=== PATIENT | female | born 1960 | race Caucasian/White ===

== ENCOUNTER → 2017-12-16 08:35 | Outpatient (CLI) | payer OTHER, SELFPAY ==
--- NOTE | 2017-12-16 08:38 | BI_ITS ---
MAMMOGRAPHY - BILATERAL SCREENING REASON FOR EXAM: Female, 57 years old. Routine annual screening examination. PERTINENT HISTORY: Aunt with breast cancer. Prior left stereotactic breast biopsy. TECHNIQUE: Digital bilateral breast torres (3D mammographic acquisition) in the CC and MLO projections. 2-D mediolateral oblique (MLO) and craniocaudad (CC) views of both breasts were obtained. CAD: Full Field Digital Mammography with Computer Added Detection was performed. COMPARISON: Comparison is made with prior study dated December 07, 2016 and November 28, 2015. FINDINGS: Breast Composition: The breasts are heterogeneously dense, which may obscure small masses. There are no dominant masses or suspicious calcifications. Once again, a tissue clip marker is seen in the upper midportion of the left breast from prior stereotactic biopsy. Stable small benign-appearing bilateral axillary lymph nodes. No other significant abnormalities are identified. There has been no significant change since the prior study. BI/SCREENING MAMM (CAD), BILAT IMPRESSION: Stable bilateral screening mammogram. Yearly follow-up mammogram recommended. (A) ASSESSMENT CATEGORY: BIRADS Category 2: Benign. A letter regarding these results will be sent to the patient by the facility within 30 days. Approximately 10% of breast cancers are not detected by mammography. A normal mammogram should not delay biopsy of a clinically suspicious abnormality. [id number] Electronically Signed: Harvey Mohan MD at 10:54 EDT Tel [phone], Service support ,
== END ==
PROVIDERS: Family Provider Family Medicine; PCP Family Medicine; Visit Provider Obstetrics & Gynecology
DX: Z12.31 Encounter for screening mammogram for malignant neoplasm of breast (principal)
CPT/HCPCS: 77063; 77067

== ENCOUNTER → 2018-06-23 08:39 | Outpatient (CLI) | payer OTHER, SELFPAY ==
[2018-06-23 12:40] LABS: Vitamin D,25 Hydroxy 86.8 ng/mL (29.95-100.01)
[2018-06-23 13:01] LABS: ALB/GLOB Ratio 1.1 RATIO (0.9-2.4); AST(SGOT) 23 U/L (15-37); Alanine Aminotransfer ALT/SGPT 23 U/L (13-56); Albumin, Serum 3.6 g/dL (3.2-5.0); Alkaline Phosphatase 67 U/L (45-117); Anion Gap 8 (5-15); BUN 9 mg/dL (7-18); BUN/Creat Ratio 13.7 RATIO (10-20); Calcium,Total 8.7 mg/dL (8.5-10.1); Chloride 108 mmol/L (98-107); Cholesterol 177 mg/dL (200); Creatinine, Serum 0.66 mg/dL (0.55-1.02); EST Glomerular Filtration Rate 99 mL/min (>60); Est Glom Filt Rate - Afr Amer 119 mL/min (>60); Globulin 3.3 g/dL (2.2-4.2); Glucose 87 mg/dL (74-106); High Density Lipoprotein 66 mg/dL; Potassium 3.8 mmol/L (3.5-5.1); Protein, Total 6.9 g/dL (6.4-8.2); Sodium Level 142 mmol/L (136-145); Thyroid Stim Hormone (TSH) 2.17 uIU/mL (0.358-3.74); Triglycerides 58 mg/dL; Very Low Density Lipoprotein 12 mg/dL (5-40)
== END ==
PROVIDERS: Family Provider Family Medicine; PCP Family Medicine; Visit Provider Family Medicine
DX: M81.0 Age-related osteoporosis without current pathological fracture (principal); E55.9 Vitamin D deficiency, unspecified; Z13.220 Encounter for screening for lipoid disorders
CPT/HCPCS: 36415; 80053; 80061; 82306; 84439; 84443

== ENCOUNTER → 2018-12-29 10:29 | Outpatient (CLI) | payer OTHER, SELFPAY ==
--- NOTE | 2018-12-29 10:36 | BI_ITS ---
MAMMOGRAPHY - BILATERAL SCREENING 3-D TOMOSYNTHESIS REASON FOR EXAM: Female, 58 years old. Bilateral Screening 3-D tomosynthesis PERTINENT HISTORY: Aunt with breast cancer.. TECHNIQUE: 2-D mammograms and 3-D Tomosynthesis of the breast (s) were performed. CAD was performed. COMPARISON: 12/16/2017 FINDINGS: The breast composition is heterogeneously dense that can obscure small breast masses. Scattered benign calcifications are seen. No dense spiculated masses or suspicious microcalcifications are identified. No architectural distortion is identified. There is no skin thickening or retraction. There has been no significant change since the prior study. BI/SCREENING MAMM (CAD), BILAT IMPRESSION: No mammographic signs of malignancy. Routine yearly mammograms recommended. ASSESSMENT CATEGORY: BIRADS Category 2: Benign. A letter regarding these results will be sent to the patient by the facility within 30 days. FOLLOW UP RECOMMENDATION: Yearly follow up mammogram recommended. (A) Approximately 10% of breast cancers are not detected by mammography. A normal mammogram should not delay biopsy of a clinically suspicious abnormality. Electronically Signed: Carlton Diggs MD at 13:12 EDT , Service support ,
== END ==
PROVIDERS: Family Provider Family Medicine; PCP Family Medicine; Referring Provider Obstetrics & Gynecology; Visit Provider Obstetrics & Gynecology
DX: Z12.31 Encounter for screening mammogram for malignant neoplasm of breast (principal)
CPT/HCPCS: 77063; 77067

== ENCOUNTER → 2019-06-14 09:36 | Outpatient (CLI) | payer OTHER, SELFPAY ==
[2019-06-01 10:49] VITALS: BMI 23.1
[2019-06-14 12:46] LABS: AST(SGOT) 18 U/L (15-37); Alanine Aminotransfer ALT/SGPT 23 U/L (13-56); Albumin, Serum 3.8 g/dL (3.2-5.0); Alkaline Phosphatase 75 U/L (45-117); Bilirubin, Direct 0.15 mg/dL (0.00-0.30); Cholesterol 179 mg/dL (200); Globulin 3.6 g/dL (2.2-4.2); High Density Lipoprotein 68 mg/dL; Protein, Total 7.4 g/dL (6.4-8.2); T4 Total, Thyroxin 7.9 ug/dL (4.8-13.9); Thyroid Stim Hormone (TSH) 3.01 uIU/mL (0.358-3.74); Triglycerides 78 mg/dL; Very Low Density Lipoprotein 16 mg/dL (5-40)
== END ==
PROVIDERS: Family Provider Family Medicine; PCP Family Medicine; Referring Provider Internal Medicine Cardiovascular Disease; Visit Provider Internal Medicine Cardiovascular Disease
DX: E78.00 Pure hypercholesterolemia, unspecified (principal); R00.2 Palpitations
CPT/HCPCS: 36415; 80061; 80076; 84436; 84443

== ENCOUNTER → 2019-06-20 09:57 | Outpatient (CLI) | payer OTHER, SELFPAY ==
[2019-06-01 10:49] VITALS: BMI 23.1
--- NOTE | 2019-06-20 09:59 | ECHOD_ITS ---
Reason For Study: Palpitations Procedure This was a 2D Doppler, Color Flow transthoracic echocardiogram. Exam performed in department. Left Ventricle Normal size and thickness. The estimated ejection fraction is 65 %. Normal diastology for age. No regional wall motion abnormalities noted. Right Ventricle Normal size and thickness. Normal systolic function. Atria Normal left atrium. Normal right atrium. Normal atrial septum. Bubble contrast study negative for right to left interatrial shunt. Mitral Valve The mitral valve is structurally normal. No prolapse or stenosis seen. Mild (1+) eccentric mitral valve insufficiency. Tricuspid Valve Normal tricuspid valve. Trivial tricuspid valve insufficiency. Right ventricular systolic pressure estimated to be 22 mmHg. Aortic Valve Normal aortic valve. Trisinus/trileaflet aortic valve. Pulmonic Valve Normal pulmonic valve. Great Vessels Normal aortic root. Normal arch. Normal inferior vena cava. Inferior vena cava collapse with sniff. Pericardium/Pleural No pericardial effusion. MMode/2D Measurements & Calculations LVIDd: 3.4 cm IVSd: 0.92 cm LA dimension: 3.5 cm LVIDs: 2.1 cm LVPWd: 1.2 cm RVDd: 3.9 cm FS: 36.5 % LAV(MOD-bp): 50.9 ml LA A4 area: 16.5 cm2 RA A4 area: 13.8 cm2 LAV(MOD-bp) Indexed: 27.9 ml/m2 LAV(MOD-sp2): 40.6 ml LAV(MOD-sp4): 49.1 ml Time Measurements MV dec time: 0.21 sec Doppler Measurements & Calculations MV E max aaron: 76.0 cm/sec Lat Peak E' Aaron: 9.3 cm/sec Med Peak E' Aaron: 5.1 cm/sec MV A max aaron: 60.4 cm/sec E/E' lat: 8.2 E/E' med: 14.9 MV E/A: 1.3 MV V2 max: 102.1 cm/sec MV P1/2t max aaron: 103.0 cm/sec Ao V2 max: 91.9 cm/sec MV max P.2 mmHg MV P1/2t: 114.0 msec Ao max P.4 mmHg MV V2 mean: 55.3 cm/sec MV dec slope: 264.9 cm/sec2 Ao V2 mean: 68.8 cm/sec MV mean P.4 mmHg MVA(P1/2t): 1.9 cm2 Ao mean P.0 mmHg MV V2 VTI: 35.3 cm Ao V2 VTI: 20.6 cm LV V1 max: 83.0 cm/sec MR max aaron: 555.2 cm/sec PA V2 max: 75.1 cm/sec LV V1 max P.8 mmHg MR max P.3 mmHg LV V1 mean P.5 mmHg MR mean aaron: 400.2 cm/sec LV V1 mean: 56.3 cm/sec MR mean P.2 mmHg LV V1 VTI: 18.4 cm MR VTI: 148.7 cm TR max aaron: 208.1 cm/sec TR max P.3 mmHg Interpretation Summary The estimated ejection fraction is 65 %. Normal diastology for age. Bubble contrast study negative for right to left interatrial shunt. Mild (1+) eccentric mitral valve insufficiency. Trivial tricuspid valve insufficiency. Right ventricular systolic pressure estimated to be 22 mmHg. There is no comparison study available. Ordering Physician: Enzo Marquez Referring Physician: Torsten Rubio Performed By: Rory Zelaya RCS
== END ==
PROVIDERS: Family Provider Family Medicine; PCP Family Medicine; Referring Provider Internal Medicine Cardiovascular Disease; Visit Provider Internal Medicine Cardiovascular Disease
DX: R00.2 Palpitations (principal)
CPT/HCPCS: 93306; A4216

== ENCOUNTER → 2019-07-09 09:38 | Outpatient (CLI) | payer OTHER, SELFPAY ==
[2019-06-01 10:49] VITALS: BMI 23.1
[2019-07-06 09:43] VITALS: BMI 23.1
--- NOTE | 2019-07-09 09:39 | STE_ITS ---
Reason For Study: PALPITATIONS Stress Results Protocol: Adebayo Protocol Maximum Predicted HR: 162 bpm Target HR: 138 bpm % Maximum Predicted HR: 97 % DurationHeart Rate Stage (mm:ss) (bpm) BP Comment BASELINE 68 112/70 STAGE 1 3:00 100 140/82 STAGE 2 3:00 126 142/80 STAGE 3 3:00 142 162/80SL. SOB STAGE 4 1:17 157 / SL SOB RECOVERY 81 132/74 Stress Duration: 10:17 mm:ss Maximum Stress HR: 157 bpm Baseline Echocardiogram Findings The estimated ejection fraction is 65 %. Stress Echo Wall motion Data Resting WM Intermediate WM Stress WM Resting Wall Motion Wall Motion Stress No regional wall motion No regional wall motion abnormalities noted. abnormalities noted. EKG Data The baseline ECG displays normal sinus rhythm. The patient exercised according to the regular Adebayo protocol for a total duration of 10:17. The maximum heart rate attained was 160 beats per minute. This was 98% of maximum predicted heart rate. The patient exercised into stage 4 of the Adebayo protocol. During stress, there were no ST or T wave changes noted to suggest ischemia. No clinical angina was noted. No arrhythmias noted. Interpretation Summary The estimated ejection fraction is 65 %. Normal, adequate, treadmill echocardiogram. Negative for ischemia based on EKG and echocardiographic criteria. No anginal symptoms noted. No arrhythmias noted. Appropriate blood pressure response to exercise. Average exercise capacity for age. Test terminated due to dyspnea. Final LVEF is 75%. Patient tolerated procedure well. No complications. Ordering Physician: Enzo Marquez MD Referring Physician: Enzo Marquez Performed By: Kim Luciano RDCS
== END ==
PROVIDERS: Family Provider Family Medicine; PCP Family Medicine; Referring Provider Internal Medicine Cardiovascular Disease; Visit Provider Internal Medicine Cardiovascular Disease
DX: R00.2 Palpitations (principal); R06.00 Dyspnea, unspecified
CPT/HCPCS: 93017; 93350

== ENCOUNTER → 2019-07-12 20:14 | Outpatient (CLI) | payer OTHER, SELFPAY ==
[2019-06-01 10:49] VITALS: BMI 23.1
[2019-07-06 09:43] VITALS: BMI 23.1
== END ==
PROVIDERS: Family Provider Family Medicine; PCP Family Medicine; Referring Provider Internal Medicine Cardiovascular Disease; Visit Provider Internal Medicine Cardiovascular Disease
DX: G47.10 Hypersomnia, unspecified (principal)
CPT/HCPCS: 95810

== ENCOUNTER → 2019-07-19 10:10 | Outpatient (CLI) | payer OTHER, SELFPAY ==
[2019-07-19 10:07] VITALS: BMI 23.1
--- NOTE | 2019-07-19 10:12 | RAD_ITS ---
STUDY: X-RAY - RIGHT HAND REASON FOR EXAM: Pain at base of thumb, repetitive work. TECHNIQUE: 3 view(s) of the hand. COMPARISON: None. FINDINGS: There is osteopenia. Normal radiocarpal articulation. Normal distal radioulnar joint. Normal visualized carpal bones. Normal carpal articulations Normal carpometacarpal articulation of the thumb. Normal second through fifth carpometacarpal joints. Normal metacarpi. Normal metacarpophalangeal joint of the thumb. Normal interphalangeal joint of the thumb. Normal proximal and distal phalanges of the thumb. Normal metacarpophalangeal joints of the second through fifth fingers. There is joint space narrowing of the distal interphalangeal joints of the second through fifth fingers. Normal phalanges of the second through fifth fingers. The soft tissue structures are unremarkable. RAD/Hand Min 3 Views IMPRESSION: Arthrosis of the distal interphalangeal joints. Electronically Signed: Kalen Tavera MD at 11:04 EST Tel , Service support ,
== END ==
PROVIDERS: Family Provider Family Medicine; PCP Family Medicine; Referring Provider Orthopaedic Surgery; Visit Provider Orthopaedic Surgery
DX: M79.644 Pain in right finger(s) (principal)
CPT/HCPCS: 73130

== ENCOUNTER 2019-08-16 09:00 | Outpatient (RCR) | payer OTHER, SELFPAY ==
[2019-07-19 10:07] VITALS: BMI 23.1
--- NOTE | 2019-07-24 11:09 | HP.OTEVAL_ITS ---
Patient's Visit Information ARY MOELLER is a 58 year old F, referred to Occupational Therapy by Vicky Campbell DO, with a diagnosis of CMC pain; 2st metacarpal pain. Date of Evaluation: 07/24/19 Occupational Therapist: Felipa Schwartz, OTR/L - Subjective Subjective: Arrived and noted she has had increased thumb pain for a few years. She noted it gets aggravated in the fall. She noted she not working anywhere but completes yardwork regularly and having increased pain that is not subsiding. She noted just picking up a log hurts R thumb. Thumb pain appears to be in metacarpal joint. - Pain right thumb 0 Pain Intensity Range: 5 - Objective Objective/Observation: Good MP joint integrity; hyperextention of IP joint of B thumbs. Tenderness with palpation of proximal metacarpal bone. - ROM Wrist: flexion R 0-84, L WFL; ext R 0-66, WLF CMC: opposition R 0-30, L 0-34 MP: R 0-56, L 0-66 IP: R 0-60, L 0-56 Radial Abduction: R 0-45, L 0-46 MP: WFL PIP: WFL DIP: WFL - Strength Inspection Clerk: R 64, L 59 Lateral Pinch: R 8, L 10 Tripod Pinch: R 10, L 12 Tip-to-Tip Pinch: R 4, L 4 Strength Comments: Pain post resistive movements. - Sensation Sensation Comments: denies numbness or tingling. - Quick DASH-Disab of Arm,Shoulder& Hand Quick DASH Score: 6.8175 - Rehabilitation General Assessment: Ary completed OT evaluation on this date of 07/24/19. She has had ongoing thumb pain on and off for the last few years. She noted with rest pain resolves but after yardwork and other work around home it has continued this year. Structurally the x-ray did not indicate arthritis at CMC but general arthrosis of DIP of all fingers. Additionally, increased pain is palpated at proximal metacarpal area. Skilled OT warranted to promote increased strength, stability, body technician/painter training, and general ability to return to PLOF by d/c. Rehabilitation Potential: Good - Anticipated Interventions Anticipated Interventions: A/AAROM/PROM, Strengthening, Modalities, Orthoses, Joint Protection/Energy Conservation, Ergonomic Education, Fine Motor Coord/Lenard, ADL Training, Education re assistive Equipment, Caregiver Training, Home Program - Visit Plan Frequency: 2x /Week Duration: 4 Weeks General Plan: POC to be established to promote increased thumb stability and strength, pain management with use of modalities, ergonomic and body technician/painter training to promote increased ability to return to PLOF by d/c. TEXT: Thank you for the opportunity to evaluate your patient. For Medicare and Medicare HMO plans, please review the plan of care and approve it. It will need to be FAXED BACK to us at [phone] for Medicare purposes. Please let me know if there are questions or concerns regarding this plan of care. Physician S ignature: Date:
--- NOTE | 2019-10-02 07:51 | HP.OT.NRP ---
HP - Discharge Summary - Patient Information EVI MOELLER was seen in my office for initial evaluation on 07/24/19. The following Plan of Care was established for this patient: Initial Frequency: 2x /Week Initial Duration: 4 Weeks Plan: continue POC. Looking into ionto to see if covered. Evi to fill out med form to have on hand if needed and return next session. Continue stability exercises; monitor thumb pain and may try more bracing methods. - Anticipated Interventions Anticipated Interventions: A/AAROM/PROM, Strengthening, Modalities, Orthoses, Joint Protection/Energy Conservation, Ergonomic Education, Fine Motor Coord/Lenard, ADL Training, Education re assistive Equipment, Caregiver Training, Home Program This patient was last seen in our office 08/16/19. Pertinent comments regarding their Occupational therapy will appear below: Evi has not completed further follow up. OT called and discussed further home based treatment in conjunction to exercises set up in therapy.Ot had made low profile splint to manage pain with daily tasks but she is to further ook into PUSH brace as she is very activity and that is a brace that would support CMC without limiting her hand. She is to call with questions/ concerns. Her chart will be d/c'd at this time. At this point I will be discontinuing this patient from occupational therapy. I would be happy to see this patient again in the future if found appropriate by the physician. Thank you! Felipa Schwartz, OTR/L
== END 2019-08-16 19:00 | disposition home or self-care (01) ==
LOC: OT 09:00
PROVIDERS: Family Provider Family Medicine; PCP Family Medicine; Referring Provider Orthopaedic Surgery; Visit Provider Orthopaedic Surgery
DX: M25.541 Pain in joints of right hand (principal)
CPT/HCPCS: 97035; 97110; 97166; 97530; 97760

== ENCOUNTER → 2019-09-04 10:16 | Outpatient (CLI) | payer OTHER, SELFPAY ==
[2019-08-21 08:26] VITALS: BMI 23.1
--- NOTE | 2019-09-04 10:19 | MRI_ITS ---
STUDY: MRI RIGHT HAND REASON FOR EXAM: Female, 59 years old. Right thumb pain. First metacarpal pain. Repetitive use injury. TECHNIQUE: Standardized fat and water weighted pulse sequences were obtained in all 3 orthogonal planes. COMPARISON: X-ray dated 07/19/2019. FINDINGS: FIRST DIGIT: Moderate first carpometacarpal joint arthrosis. Small-volume first carpometacarpal joint effusion. Normal first metacarpal phalangeal joint. Normal first interphalangeal joint. Normal flexor and extensor tendons. No acute soft tissue abnormality. SECOND DIGIT: Normal visualized second metacarpus. Normal metacarpophalangeal joint. Normal proximal and distal interphalangeal joints. Normal proximal, middle and distal phalanges. Normal flexor and extensor tendons. There is no soft tissue abnormality. THIRD DIGIT: Normal visualized third metacarpus. Normal metacarpophalangeal joint. Normal proximal and distal interphalangeal joints. Normal proximal, middle and distal phalanges. Normal flexor and extensor tendons. There is no soft tissue abnormality. FOURTH DIGIT: Normal visualized fourth metacarpus. Normal metacarpophalangeal joint. Normal proximal and distal interphalangeal joints. Normal proximal, middle and distal phalanges. Normal flexor and extensor tendons. There is no soft tissue abnormality. FIFTH DIGIT: Normal visualized fifth metacarpus. Normal metacarpophalangeal joint. Normal proximal and distal interphalangeal joints. Normal proximal, middle and distal phalanges. Normal flexor and extensor tendons. There is no soft tissue abnormality. Small nonspecific cyst/erosions at the capitate and triquetrum. No acute fracture lines. No acute dislocation. No acute cortical destruction. No solid, cystic or lipomatous soft tissue lesions. No significant muscle atrophy. No significant soft tissue swelling. Normal visualized portions of the median nerve. Normal triangular fibrocartilage complex. Normal dorsal and volar extrinsic ligaments. Normal scapholunate ligament. MRI/Upper Ext/No Jt/ wo IMPRESSION: Moderate first CMC joint arthrosis with small joint effusion Small nonspecific carpal bone cysts/erosions Electronically Signed: Al Sloan DO at 12:40 EST Tel , Service support ,
== END ==
PROVIDERS: Family Provider Family Medicine; PCP Family Medicine; Referring Provider Orthopaedic Surgery; Visit Provider Orthopaedic Surgery
DX: S53.441A Ulnar collateral ligament sprain of right elbow, initial encounter (principal); M18.11 Unilateral primary osteoarthritis of first carpometacarpal joint, right hand
CPT/HCPCS: 73218

== ENCOUNTER 2019-10-25 05:55 | Day surgery (SDC) | payer BC, SELFPAY ==
[2019-09-12 09:13] VITALS: BMI 23.1
[2019-10-25] VITALS (8 sets, daily range): BP systolic 124–134; BP diastolic 73–92; PULSE 63–80; RESP 16–18; TEMP 36.4–36.9; O2SAT 98–100; BMI 22.4
--- NOTE | 2019-10-25 00:07 | HP.PCM_ITS ---
History and Physical Date of Admission: 10/25/19 HISTORY OF PRESENT ILLNESS 59 year old woman presents with a painful lesion left ear at the level of the antihelix at the base of the triangular fossa that has worsened over the last several months. The pain is worse in the morning then improves throughout the day. The area is erythematous. She denies fever. She denies trauma. She denies recent infection. She did have ear surgery several years ago but doesn't have specifics. She also has questions about the prominence of her ears and surgical options for treatment for that. PAST MEDICAL HISTORY Palpitations Atrial fibrillation Back problem Bone fracture Breast lump in female History of blood clots Skin cancer History of DVT (deep vein thrombosis) PAST SURGICAL HISTORY ear surgery back surgery ALLERGIES Sulfa (Sulfonamide Antibiotics) sulfamethoxazole [From Bactrim] trimethoprim [From Bactrim] bacitracin [From Neosporin ([id number]-vmu-[id number])] neomycin [From Neosporin (oue-gbs-ockoo)] polymyxin B [From Neosporin (keg-mrp-gggdu)] MEDICATIONS multivitamin omega-3 fatty acids ascorbic acid (vitamin C) vitamin B complex vitamin E (dl, acetate) antiarthritic combination calcium carbonate diltiazem rivaroxaban FAMILY HISTORY Mother - Atrial fibrillation, Arthritis, Colon cancer, Hypertension Aunt - Breast cancer Father - Skin cancer Sister - Skin cancer, MELANOMA Son - Hypertension Son - Hypertension SOCIAL HISTORY Smoking Status: Never smoker alcohol intake: current alcohol intake frequency: 0-2 drinks per day substance use type: does not use REVIEW OF SYSTEMS General - Denies fever, fatigue, and weight loss. Eyes - Denies cataracts and glaucoma. ENT - Denies nasal congestion and sore throat. Endocrine - Denies excessive thirst and urination. Skin - Has personal history of skin cancer. Has family history of skin cancer. Has painful erythematous lesion left ear at the level of the antihelix at the base of the triangular fossa. Musculoskeletal - Denies joint pain, joint stiffness, weakness of muscles and joints, and arthritis. Has back pain. Neuro - Denies headaches. Cardiovascular - Denies chest pain, fatigue, and shortness of breath with exertion. Psych - Denies anxiety and depression. Respiratory - Denies chronic cough and shortness of breath. Gastrointestinal - Denies nausea, vomiting, diarrhea, and constipation. Hematologic - Denies abnormal bruising and bleeding. Genitourinary - Denies hematuria and urinary frequency. PHYSICAL EXAMINATION General - Alert and Oriented. HEENT - PERRL. EOMI. Throat is clear. On the left ear on the antihelix at the base of the triangular fossa is a nodular cartilaginous lesion that measures 1 cm. It is erythematous. Some tenderness to palpation. Has some prominence to her ears. There is a mild ill-defined antihelical fold. There is no evidence of conchal excess and conchal scaphal angle is mildly greater than 90 degrees. The distance from the mastoid to the helix is 2.3 cm. Neck - Supple and nontender. No cervical adenopathy. Lungs - Clear to auscultation. Heart - Regular rate and rhythm. Abdomen - Soft and nondistended. Extremities - FROM. No axillary adenopathy. Radial pulses are palpable. Neuro - CN II-XII grossly intact. Psych - Normal mood and affect. ASSESSMENT 1. 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 2. Bilateral prominent ears. 3. Personal history of skin cancer. 4. Family history of skin cancer. PLAN Recommend excision of this erythematous cartilaginous lesion and send it to Pathology for analysis to rule out carcinoma. 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 After healing has occurred, can then discuss surgery for her prominent ears with an otoplasty. The otoplasty would not be covered by her insurance carrier, and she would be financially responsible. Surgery will be done on an outpatient basis under local anesthesia and IV sedation. Patient was informed of the risks and complications of the procedure including alternatives to surgery. These were discussed with the patient personally. Patient voices understanding and wishes to proceed. Some of the risks and complications were included in a form from the [employer].
[2019-10-25] MEDS: Lactated Ringers 1,000 ML 100 ML IV (06:50)
--- NOTE | 2019-10-25 07:30 | LES_PTH ---
PATIENT: EVI MOELLER [place] [facility] [place][id number] AGE/SX: 59/F ROOM: RE10/25/[address]: Dr. Alfonso Dickerson MD : 1960 BED: DIS: 10/25/2019 SPEC #: [id number] RECD: 10/25/19 10:23 STATUS: TIMMY REMehnaz #: [id number] NATALIA: 10/25/19 07:[address]: Alfonso Dickerson DEPT: SURGICAL PATHOLOGY RECD BY: Lenin Holloway ENTERED: 10/25/19 10:50 SP TYPE: Lesion OTHR DR: Dr. 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 A fragment of skin, no pathologic diagnosis. Negative for malignancy. GURVINDER:dania 10/26/19 MICROSCOPIC DESCRIPTION Slides are reviewed. GROSS DESCRIPTION Received in fixative is one container labeled with the patient's name and designated 1 cm painful erythematous lesion left ear on antihelix at base of triangular fossa. The specimen consists of multiple pieces of livingston-white skin and cartilaginous tissue that in aggregate measure 1 x 1.5 x 0.1 cm. The entire specimen is submitted in one cassette. / SJ:dania 10/25/19 TC:5 CPT: 93971
[2019-10-25] MEDS: Mupirocin Ointment 22gm Tube 1 APPLIC (07:58)
--- NOTE | 2019-10-25 08:19 | OP.PCM_ITS ---
Report of Operation Date of Procedure: 10/25/19 Pre-Operative Diagnosis: 1. 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 2. Bilateral prominent ears. 3. Personal history of skin cancer. 4. Family history of skin cancer. Post-Operative Diagnosis: Same. 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 Description of Surgical Findings:: 59 year old woman presents with a painful lesion left ear at the level of the antihelix at the base of the triangular fossa that has worsened over the last several months. The pain is worse in the morning then improves throughout the day. The area is erythematous. She denies fever. She denies trauma. She denies recent infection. She did have ear surgery several years ago but doesn't have specifics. Patient was informed of the risks and complications of the procedure including alternatives to surgery. These were discussed with the patient personally. Patient voices understanding and wishes to proceed. Some of the risks and complications were included in a form from the [employer]. accounts receivable analyst: None Type of Anesthesia:: Local MAC - xylocaine with epinephrine regional auricular block and IV sedation Specimen's removed: Cartilaginous lesion left ear to Pathology. Drains: None. Estimated Blood Loss (mL): 5 ml. Description of Procedure: Patient was taken to OR in supine position and was given IV sedation. The left ear was prepped and draped in the usual fashion. SCD's were placed for DVT prophylaxis. Perioperative antibiotics were given intravenously. The left ear was infiltrated with xylocaine and epinephrine regional auricular block. After waiting 5 minutes for the anesthetic to take effect, I made a curvilinear elliptical incision into the subcutaneous tissue. Some of the cartilaginous mass was adherent to the overlying skin with a small area of ulceration. The small ulceration was included in the curvilinear elliptical excision. The cartilaginous mass was excised back to smooth cartilage. It was feathered at the edges to minimize hard points in the cartilage during the healing process. The cartilaginous mass was sent to Pathology for analysis to rule out carcinoma. Hemostasis was obtained with electrocautery. The wound was closed with 5-0 Monocryl simple interrupted sutures. Antibiotic ointment was applied to the suture line. Patient tolerated the procedure well and was sent to PACU in satisfactory condition. Patient will be sent home on antibiotics and pain medication. She will keep her head elevated during the initial postoperative period. Patient will followup in a week for a wound check and for discussion of the pathology report. Grafts/Implants Used: None. - Complications None. - Admit VTE Documentation VTE Present on Admission: No VTE Mechan Device Prophylaxis: SCD's VTE Pharm Prophylaxis ordered?: No Code Visit Surgery Charges CPT - 60011 ICD-10 - H61.002, Z85.828, Z80.8
--- NOTE | 2019-10-25 08:34 | PCM.DC ---
You will use the following diet at home:: No restrictions Discharge Activity: May not drive while taking narcotic pain medications., May Shower - in two days., - - keep head elevated. no heavy lifting. May shower in (days): 2 May resume sexual activity in: No Restrictions Weight Bearing Status: Weight bearing as tolerated Lifting Restrictions: 20 lbs. Keep extremity elevated above heart level: - - elevate head. Call your doctor if your incision/area has: Continuous Slow Oozing, Sudden Increased Bleeding, Increased Pain/ Swelling, Increased Redness, Foul Smelling Discharge, Swelling at the incision site Call your doctor if you observe: Fever of 101 or Higher, Coldness, Increased Pain, Shortness of breath, Chest pain, Calf discomfort, Uncontrolled pain Suture Line Care: - - apply antibiotic ointment to suture line daily. Cleanse incision/area with: - - may get incision wet in the shower in two days. Additional Instructions: Patient may resume her Xarelto tomorrow 10/25/19. Allergies/Adverse Reactions: Allergies Sulfa (Sulfonamide Antibiotics) Allergy (Intermediate, Verified 10/25/19 06:32) Rash sulfamethoxazole [From Bactrim] Allergy (Intermediate, Verified 10/25/19 06:32) rash trimethoprim [From Bactrim] Allergy (Intermediate, Verified 10/25/19 06:32) rash bacitracin [From Neosporin ([id number])] Adverse Reaction (Intermediate, Verified 10/25/19 06:32) wound gets worse neomycin [From Neosporin ([id number])] Adverse Reaction (Intermediate, Verified 10/25/19 06:32) wound gets worse polymyxin B [From Neosporin ([id number]-[id number]-[id number])] Adverse Reaction (Intermediate, Verified 10/25/19 06:32) wound gets worse Medications to take at Discharge multivitamin 1 tab PO DAILY 05/30/19 ascorbic acid (vitamin C) 1,000 mg tablet 1 g PO DAILY tab 06/01/19 vitamin B complex 1 cap PO DAILY 06/01/19 vitamin E (dl, acetate) 400 unit capsule 400 unit PO DAILY 06/01/19 calcium carbonate 600 mg calcium (1,500 mg) tablet 600 mg PO DAILY 07/19/19 diltiazem HCl 120 mg capsule,extended release 24 hr 120 mg PO DAILY #30 cap 08/07/19 Clindamycin HCl [Cleocin] 300 mg PO TID #15 cap 10/25/19 Lactobacillus Acidophilus/Fos [Acidophilus Probiotic Tablet] 1 ea PO BID #10 tab 10/25/19 Oxycodone HCl/Acetaminophen [Percocet 5/325] 1 tablet PO Q6H PRN PRN 5 Days #20 tablet 10/25/19 Rivaroxaban [Xarelto] 20 mg PO DAILY #30 tab 10/25/19 The following prescriptions were given: Lactobacillus Acidophilus/Fos [Acidophilus Probiotic Tablet] 1 ea PO BID #10 tab Transmission Status: Pending to [facility] Clindamycin HCl [Cleocin] 300 mg PO TID #15 cap Transmission Status: Pending to [facility] Oxycodone HCl/Acetaminophen [Percocet 5/325] 1 tablet PO Q6H PRN PRN 5 Days #20 tablet PRN Reason: Pain Score 4-5/10 Transmission Status: Sent to [facility] Primary Care Physician: Torsten Rubio MD [Primary Care Provider] - Test Results: Test results from this visit will be discussed in further detail at your follow-up appointment, if applicable. Please Follow Up With: Alfonso Dickerson MD When: one week. call [phone] for appt. Proposed Discharge Date: 10/25/19
== END 2019-10-25 09:26 | disposition home or self-care (01) ==
LOC: SDC 05:57 → AC 05:58
PROVIDERS: PCP Family Medicine; Referring Provider Surgery; Visit Provider Surgery
PROC: (CPT 21013; principal; 2019-10-25 07:20)
DX: L98.9 Disorder of the skin and subcutaneous tissue, unspecified (principal); I48.91 Unspecified atrial fibrillation; Z86.718 Personal history of other venous thrombosis and embolism; Z85.828 Personal history of other malignant neoplasm of skin; Z79.899 Other long term (current) drug therapy; Z79.01 Long term (current) use of anticoagulants; H92.02 Otalgia, left ear
CPT/HCPCS: 00300; 21013; 88305; J7120; J2405

== ENCOUNTER → 2020-01-24 08:26 | Outpatient (CLI) | payer BC, SELFPAY ==
[2019-11-01 09:16] VITALS: BMI 22.4
--- NOTE | 2020-01-24 08:28 | BI_ITS ---
MAMMOGRAPHY - BILATERAL SCREENING REASON FOR EXAM: Female, 59 years old. Routine annual screening examination. PERTINENT HISTORY: Aunt with breast cancer. Remote left stereotactic breast biopsy. TECHNIQUE: Digital bilateral breast ayaz (3D mammographic acquisition) in the CC and MLO projections. 2-D mediolateral oblique (MLO) and craniocaudad (CC) views of both breasts were obtained. CAD: Full Field Digital Mammography with Computer Added Detection was performed. COMPARISON: Comparison is made with prior study dated December 29, 2018 and December 16, 2017. FINDINGS: Breast Composition: The breasts are heterogeneously dense, which may obscure small masses. There are no dominant masses or suspicious calcifications. A tissue clip marker is once again seen in the upper central portion of the left breast. No other significant abnormalities are identified. There has been no significant change since the prior study. BI/SCREEN MAMM (CAD) W/AYAZ BILAT IMPRESSION: Stable bilateral screening mammogram. Yearly follow-up mammogram recommended. (A) ASSESSMENT CATEGORY: BIRADS Category 2: Benign. A letter regarding these results will be sent to the patient by the facility within 30 days. Approximately 10% of breast cancers are not detected by mammography. A normal mammogram should not delay biopsy of a clinically suspicious abnormality. [id number] Electronically Signed: Harvey Mohan, at 10:18 EDT , Service support ,
== END ==
PROVIDERS: PCP Family Medicine; Referring Provider Obstetrics & Gynecology; Visit Provider Obstetrics & Gynecology
DX: Z12.31 Encounter for screening mammogram for malignant neoplasm of breast (principal)
CPT/HCPCS: 77063; 77067

== ENCOUNTER 2020-08-15 05:22 | Day surgery (SDC) | payer BC, SELFPAY ==
[2020-03-13 09:06] VITALS: BMI 23.0
[2020-08-15] VITALS (16 sets, daily range): BP systolic 106–164; BP diastolic 64–106; PULSE 66–77; RESP 16–18; TEMP 36.3–36.5; O2SAT 98–100; BMI 21.9
--- NOTE | 2020-08-15 05:46 | PCM.HP.BLA ---
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 Is patient in pain?: No Allergies Sulfa (Sulfonamide Antibiotics) Allergy (Intermediate, Verified 03/13/20 08:12) Rash sulfamethoxazole [From Bactrim] Allergy (Intermediate, Verified 03/13/20 08:12) rash trimethoprim [From Bactrim] Allergy (Intermediate, Verified 03/13/20 08:12) rash bacitracin [From Neosporin ([id number]-vio-nmamy)] Adverse Reaction (Intermediate, Verified 03/13/20 08:12) wound gets worse neomycin [From Neosporin (czd-fiy-tblsi)] Adverse Reaction (Intermediate, Verified 03/13/20 08:12) wound gets worse polymyxin B [From Neosporin (fwy-xwu-clzio)] Adverse Reaction (Intermediate, Verified 03/13/20 08:12) wound gets worse Medications multivitamin 1 tab PO DAILY 05/30/19 [History Confirmed 03/13/20] vitamin B complex 1 cap PO DAILY 06/01/19 [History Confirmed 03/13/20] vitamin E (dl, acetate) 400 unit capsule 400 unit PO DAILY 06/01/19 [History Confirmed 03/13/20] diltiazem HCl 120 mg capsule,extended release 24 hr 120 mg PO DAILY #90 cap 11/27/19 [Rx Confirmed 03/13/20] rivaroxaban 20 mg tablet 20 mg PO DAILY #90 tab 01/03/20 [Rx Confirmed 03/13/20] ascorbate calcium (vitamin C) 500 mg tablet 500 mg PO DAILY 03/13/20 [History Confirmed 03/13/20] [facility] Medical History 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) Palpitations (Chronic) Allergies (Acute) Atrial fibrillation (Acute) Back problem (Acute) Bone fracture (Acute) Breast lump in female (Acute) History of blood clots (Acute) Skin cancer (Acute) History of DVT (deep vein thrombosis) (Resolved ~2011) Surgical History History of ear surgery (Acute) History of back surgery (Chronic ~2012) History of excision of lesion (Chronic) Family History Mother Atrial fibrillation Arthritis Colon cancer Hypertension Severe allergy Aunt Breast cancer Father Skin cancer Sister Skin cancer MELANOMA Son Hypertension Son Hypertension Social History (Updated 03/13/20 @ 08:[address] Deandre Roque MD) Smoking Status: Never smoker alcohol intake: current alcohol intake frequency: 0-2 drinks per day substance use type: does not use caffeine: Yes Type: coffee Number of servings: 1 additional social history: DOES NOT USE ASPIRIN DOES USE IBUPROFEN NEEDED BUT NOT OFTEN HPI HPI HPI: EVI MOELLER, is a 59 F who presents to the office today for surgical consultation regarding a colonoscopy. 59 years old. Enjoys good health. She does have atrial fibrillation and she has been placed on Xarelto since her last visit. She has a mother who had very unusual medullary carcinoma external to the cecum. She eventually from that because it was very difficult to detect. I have assisted her February 04, 2017 with a colonoscopy. She had a tortuous colon. There was a 9 mm tubular adenoma in the proximal transverse colon. No atypia. She otherwise enjoys good health. She has had no abdominal pain no bright red blood per rectum no melena no weight loss. HPI HPI HPI: EVI MOELLER, is a 59 F who presents to the office today for ROS General General: No weight change, appetite, fatigue, colon cancer, breast cancer or weakness HEENT HEENT: No difficulty swallowing, eye injury, eye surgery, swollen glands or hoarseness Endo Endocrine: No thyroid disease, diabetes mellitus, thyroid cancer, Hair loss, heat intolerance or cold intolerance Skin Skin: No rash or changing moles Breast Breast: No left breast lump, right breast lump, nipple discharge, breast pain, abnormal mammogram, abnormal US or breast enlargement Musc Musculoskeletal: Yes back problems; no arthritis, rheumatoid arthritis, gout or joint pain Cardio Cardiovascular: Yes atrial fibrillation; no murmur, pacemaker, heart disease, high blood pressure, heart attack, heart stent, palpitations, shortness of breat with exertion or chest pain Psych Psychiatric: No depression, anxiety or hearing voices Resp Respiratory: No shortness of breath, No sleep apnea, No cough, No COPD, No asthma, No emphysema, No wheezing Gastro Gastrointestinal: No abdominal pain, No nausea or vomiting, No diarrhea, No constipation, No blood in stool, No acid reflux, No hemorrhoids, No ulcers, No gallbladder problem, No black,tarry stools Ilia Hematologic: Yes blood thinners, No blood disorders, No bleeding, No anemia, Yes blood clots Neuro Neurologic: No system reviewed and no additional complaints, except as docu, No as per HPI, No abnormal walking, No abnormal hearing, No abnormal movements, No abnormal speech, No behavioral changes, No burning sensations, No confusion, No seizure-like activity, No unsteadiness, No dizziness, No localized weakness, No frequent falls, No headache(s), No lack of coordination, No loss of vision, No memory loss, No numbness, No other visual disturbances, No radiating pain, No restless legs, No sensory deficit, No fainting, No tingling, No tremor(s), No weakness, No other Exam Const General: cooperative, healthy appearing, comfortable Nutritional Appearance: average body habitus HENMT Head: normal to inspection Chest Breast Palpation: No nipple discharge Resp Effort & Inspection: normal respiratory effort Auscultation: clear to auscultation bilaterally Cardio Rate: regular rate Rhythm: regular rhythm Heart Sounds: no murmurs GI Palpation: soft, no hepatosplenomegaly Auscultation: normal bowel sounds Extrem General: no calf tenderness Assessment & Plan Problems 1. Personal history of colonic polyps Z86.010 2. Family history of malignant neoplasm of colon in mother Z80.0 3. Paroxysmal atrial fibrillation I48.0 4. Chronic anticoagulation Z79.01 Plan 59-year-old female. She is 3 years from her previous colonoscopy with cold snare polypectomy of a proximal transverse colon tubular adenoma. She is asymptomatic. Her mother had a very unusual medullary carcinoma that was external to the cecum. This required extensive time. Detected and the patient eventually said come to it. As far as I can tell there is no routine family history of adenocarcinoma of the colon. We discussed the presence of Covid-19 The patient is now on chronic anticoagulation for A. fib. She would have to hold her Xarelto for 48 hours preintervention. We discussed the technique, benefit, risk of alternatives. At this time with a solitary tubular adenoma we discussed potential delaying the colonoscopy for 2 years. I appreciate the ongoing opportunity of assisting with her surgical care. Cc: Dr. Torsten Roque M.D., F.A.C.S. Medications Discontinued: Lactobac acidoph-fructooligos 500 million cell-50 mg Discontinued Reason: Pt no longer taking 1 ea PO BID 10 tabs 0RF clindamycin HCl Discontinued Reason: Pt no longer taking 300 mg PO TID 15 caps 0RF Coding Level of Care Code Off vis,est,level 2 Diagnoses Personal history of colonic polyps Z86.010 Family history of malignant neoplasm of colon in mother Z80.0 Paroxysmal atrial fibrillation I48.0 ??Atrial fibrillation type: paroxysmal Chronic anticoagulation Z79.01 Since the patient's office visit she denies fever or chills or cough or shortness of breath or leg swelling or pain. She has not had any bright red blood per rectum or melena. Her physical exam remains unchanged with clear lungs and unremarkable abdomen. She reminds me that she gets nauseated with some IV medications. We will provide an antiemetic. We have again discussed the technique, benefit, risk, alternatives of a colonoscopy with possible biopsy or polypectomy is indicated. She has had an opportunity to ask and have questions answered. She presents essentially via an open accessed technique. We will proceed as noted. Deandre Roque M.D., F.A.C.S. Procedure Criteria Procedure Type: Elective COVID Risk Discussion: The surgeon/proceduralist and patient have discussed in detail the risk of exposure to and/or potential harm posed by the COVID-19 virus with having a surgery/procedure at this time versus the risk of delaying the surgery/procedure. It is not possible to know either the risk of delaying the surgery or procedure or chance of getting an infection with perfect accuracy, but a joint decision was made between the patient and the surgeon/proceduralist to proceed at this time with the scheduled surgery/procedure as indicated on the consent form.
[2020-08-15] MEDS: Lactated Ringers 1,000 ML 100 ML IV ×2 (06:06→07:08)
[2020-08-15] MEDS: Ondansetron 4 MG/2 ML Vial (06:26)
--- NOTE | 2020-08-15 06:30 | COLBX_PTH ---
PATIENT: EVI MOELLER LOC: EN U#:[id number] AGE/SX: 60/F ROOM: RE08/15/[address]: Dr. Deandre Roque MD : 1960 BED: DIS: 08/15/2020 SPEC #: [id number] RECD: 08/15/20 10:52 STATUS: TIMMY REMehnaz #: [id number] NATALIA: 08/15/20 06:[address]: Deandre Roque DEPT: SURGICAL PATHOLOGY RECD BY: Charo Guardado ENTERED: 08/15/20 13:02 SP TYPE: COLON BX OTHR DR: Dr. Torsten Rubio MD Tissues: Cecum, NOS Procedures: Surgery Specimen Level IV HEADER OPERATION: Colonoscopy (MOD) PRE-OP DIAGNOSIS: Colonic polyps TISSUE SUBMITTED: Cecum polyp (cold snare and biopsy) MICROSCOPIC DIAGNOSIS Cecal polyp, biopsy: Tubular adenoma. Abundant fecal debris. AM:dania 12/14/20 MICROSCOPIC DESCRIPTION Slides are reviewed. GROSS DESCRIPTION Received in fixative is one container labeled with the patient's name and designated cecum polyp. The specimen consists of multiple irregular fragments of [place] soft tissue mixed with fecal material that in aggregate measure 2.5 x 1.5 x 0.1 cm. The specimen is totally submitted in one cassette. / SJ:dania 08/15/20 TC:5 CPT: 89944
--- NOTE | 2020-08-15 06:58 | OP.COLON_ITS ---
Patient Name: Ary Patten Procedure Date: 08/15/2020 6:04 AM Date of : 1960 Age: 60 Procedure: Colonoscopy Indications: High risk colon cancer surveillance: Personal history of colonic polyps Providers: Deandre Roque MD Referring MD: Torsten Rubio Medicines: Midazolam 3.5 mg IV, Meperidine 100 mg IV, Ondansetron 4 mg IV Patient Profile: Last Colonoscopy: 3 years ago. Complications: No immediate complications. Procedure: Pre-Anesthesia Assessment: - Prior to the procedure, a History and Physical was performed, and patient medications and allergies were reviewed. The patient's tolerance of previous anesthesia was also reviewed. The risks and benefits of the procedure and the sedation options and risks were discussed with the patient. All questions were answered, and informed consent was obtained. Prior Anticoagulants: The patient has taken Xarelto (rivaroxaban), last dose was 2 days prior to procedure. ASA Grade Assessment: II - A patient with mild systemic disease. After reviewing the risks and benefits, the patient was deemed in satisfactory condition to undergo the procedure. After I obtained informed consent, the scope was passed under direct vision. Throughout the procedure, the patient's blood pressure, pulse, and oxygen saturations were monitored continuously. The adult colonoscope was introduced through the anus and advanced to the cecum, identified by appendiceal orifice and ileocecal valve. The colonoscopy was performed without difficulty. The patient tolerated the procedure well. The quality of the bowel preparation was good. The ileocecal valve and the appendiceal orifice were photographed. Moderate Sedation: Moderate (conscious) sedation was personally administered by the endoscopist. The following parameters were monitored: oxygen saturation, heart rate, blood pressure, and response to care. Total physician intraservice time was 15 minutes. Scope In: 6:30:27 AM Scope Withdrawal Time 0 hours 17 minutes 28 seconds Scope Out: 6:52:08 AM Total Procedure Duration Time 0 hours 21 minutes 41 seconds Findings: The perianal and digital rectal examinations were normal. A 8 mm polyp was found in the cecum. The polyp was sessile. The polyp was removed with a cold snare. Resection and retrieval were complete. To prevent bleeding post-intervention, one hemostatic clip was successfully placed. There was no bleeding at the end of the procedure. The colon (entire examined portion) was moderately tortuous. Advancing the scope required using manual pressure. The exam was otherwise without abnormality. Impression: - One 8 mm polyp in the cecum, removed with a cold snare. Resected and retrieved. Clip was placed. - Tortuous colon. - The examination was otherwise normal. Recommendation: - Discharge patient to home. - Resume previous diet. - Continue present medications. - Repeat colonoscopy in 5 years for surveillance based on pathology results. - Telephone my office for pathology results in 1 week. Procedure Code(s): --- Professional --- 45927, Colonoscopy, flexible; with removal of tumor(s), polyp(s), or other lesion(s) by snare technique 54352, 59, Moderate sedation services provided by the same physician or other qualified health health care specialist performing the diagnostic or therapeutic service that the sedation supports, requiring the presence of an independent trained observer to assist in the monitoring of the patient's level of consciousness and physiological status; initial 15 minutes of intraservice time, patient age 5 years or older Diagnosis Code(s): --- Professional --- Z86.010, Personal history of colonic polyps D12.0, Benign neoplasm of cecum Q43.8, Other specified congenital malformations of intestine CPT copyright 2017 [employer]. All rights reserved. The codes documented in this report are preliminary and upon nursing admin review may be revised to meet current compliance requirements. Deandre Roque MD 08/15/2020 6:57:53 AM This report has been signed electronically. Number of Addenda: 0 Note Initiated On: 08/15/2020 6:04 AM
--- NOTE | 2020-08-15 06:58 | OP.CCLET_ITS ---
08/15/2020 Torsten Rubio Re : Colonoscopy procedure for Ary Patten Dear Joanne This procedure was performed on Saturday, August 15, 2020. My impressions and recommendations are as follows: Impressions : - One 8 mm polyp in the cecum, removed with a cold snare. Resected and retrieved. Clip was placed. - Tortuous colon. - The examination was otherwise normal. Recommendations : - Discharge patient to home. - Resume previous diet. - Continue present medications. - Repeat colonoscopy in 5 years for surveillance based on pathology results. - Telephone my office for pathology results in 1 week. My findings are described in the full procedure note, which is enclosed. If I can be of further assistance, please feel free to contact me at Doctor phone number(s): Work: . Sincerely, Deandre Roque MD 08/15/2020 6:57:53 AM This report has been signed electronically.
== END 2020-08-15 08:45 | disposition home or self-care (01) ==
LOC: EN 05:26 → AC 05:28
PROVIDERS: PCP Family Medicine; Referring Provider Family Medicine; Visit Provider Surgery
PROC: 0DJD8ZZ Inspection of Lower Intestinal Tract, Via Natural or Artificial Opening Endoscopic (ICD-10-PCS; CPT 45378; principal; 2020-08-15 06:25)
DX: Z12.11 Encounter for screening for malignant neoplasm of colon (principal); Z20.828 Contact with and (suspected) exposure to other viral communicable diseases; Z87.19 Personal history of other diseases of the digestive system; D12.0 Benign neoplasm of cecum; Z80.0 Family history of malignant neoplasm of digestive organs; Z86.718 Personal history of other venous thrombosis and embolism; I48.0 Paroxysmal atrial fibrillation; Z79.01 Long term (current) use of anticoagulants; Z79.899 Other long term (current) drug therapy; Q43.8 Other specified congenital malformations of intestine
CPT/HCPCS: 45385; 87426; 88305; 99152; 99153; C9803; J7120; J2405

== ENCOUNTER → 2021-02-11 11:21 | Outpatient (CLI) | payer BC, SELFPAY ==
[2021-02-11 10:53] VITALS: BMI 23.5
[2021-02-11 12:04] LABS: Absolute Lymphocyte Count 1.98 X10^3/uL (0.83-4.51); Basophil# 0.05 X10^3/uL; Basophil% 0.7 % (0-1); Eosinophil# 0.11 X10^3/uL; Eosinophils% 1.6 % (0-5); Hematocrit 44.1 % (37-47); Hemoglobin 14.6 g/dL (12.0-15.0); Lymphocyte # 1.98 X10^3/ul (0.83-4.51); Lymphocyte % 29.6 % (19-41); Mean Corp Hgb Conc 33.1 g/dL (32-36); Mean Corpuscular Hgb 29.7 pg (27.0-32.0); Mean Corpuscular Volume 89.8 fL (81-99); Mean Platelet Vol. 9.4 fl (6.2-12.0); Monocyte# 0.54 X10^3/uL; Monocyte% 8.1 % (0-10); NRBC Flagged by Analyzer 0 % (0-5); Neutrophil # 3.97 X10^3/uL (2.7-7.7); Neutrophil % 59.6 % (47-70); Platelet Count 227 K/mm3 (150-450); RBC Distribution Width CV 12.5 % (11.6-14.6); RBC Distribution Width SD 41.1 fl (35.1-43.9); Red Blood Count 4.91 M/mm3 (4.2-5.4); White Blood Count 6.7 K/mm3 (4.4-11.0)
[2021-02-11 13:02] LABS: ALB/GLOB Ratio 1.1 RATIO (0.9-2.4); AST(SGOT) 20 U/L (15-37); Alanine Aminotransfer ALT/SGPT 25 U/L (13-56); Albumin, Serum 3.8 g/dL (3.2-5.0); Alkaline Phosphatase 90 U/L (45-117); Anion Gap 6 (5-15); BUN 14 mg/dL (7-18); BUN/Creat Ratio 23.1 RATIO (10-20); Calcium,Total 9.6 mg/dL (8.5-10.1); Chloride 107 mmol/L (98-107); Cholesterol 191 mg/dL (200); Creatinine, Serum 0.61 mg/dL (0.55-1.02); EST Glomerular Filtration Rate 107 mL/min (>60); Est Glom Filt Rate - Afr Amer 129 mL/min (>60); Globulin 3.6 g/dL (2.2-4.2); Glucose 94 mg/dL (74-106); High Density Lipoprotein 68 mg/dL; Potassium 4.3 mmol/L (3.5-5.1); Protein, Total 7.4 g/dL (6.4-8.2); Sodium Level 141 mmol/L (136-145); Triglycerides 101 mg/dL; Very Low Density Lipoprotein 20 mg/dL (5-40)
== END ==
PROVIDERS: PCP Internal Medicine; Referring Provider Internal Medicine; Visit Provider Internal Medicine
DX: I48.0 Paroxysmal atrial fibrillation (principal)
CPT/HCPCS: 36415; 80053; 80061; 85025

== ENCOUNTER → 2021-03-19 14:17 | Outpatient (CLI) | payer BC, SELFPAY ==
[2021-02-11 10:53] VITALS: BMI 23.5
--- NOTE | 2021-03-19 14:22 | BI_ITS ---
MAMMOGRAPHY - BILATERAL SCREENING REASON FOR EXAM: Female, 60 years old. Routine annual screening examination. PERTINENT HISTORY: Aunt with breast cancer. TECHNIQUE: Digital bilateral breast ayaz (3D mammographic acquisition) in the CC and MLO projections. 2-D mediolateral oblique (MLO) and craniocaudad (CC) views of both breasts were obtained. CAD: Full Field Digital Mammography with Computer Added Detection was performed. COMPARISON: Comparison is made with prior study dated 01/24/2020 and 12/29/2018. FINDINGS: Breast Composition: The breasts are heterogeneously dense, which may obscure small masses. There are no dominant masses or suspicious calcifications. A tissue clip marker is once again seen in the upper central portion of the left breast. Stable small benign appearing bilateral axillary lymph nodes. No other significant abnormalities are identified. There has been no significant change since the prior study. BI/SCRN MAMM (CAD)W/AYAZ BILAT IMPRESSION: Stable bilateral screening mammogram. Yearly follow-up mammogram recommended. (A) ASSESSMENT CATEGORY: BIRADS Category 2: Benign. A letter regarding these results will be sent to the patient by the facility within 30 days. Approximately 10% of breast cancers are not detected by mammography. A normal mammogram should not delay biopsy of a clinically suspicious abnormality. [id number] Electronically Signed: Harvey Mohan MD at 15:35 EDT , Service support ,
--- NOTE | 2021-03-19 14:31 | BD_ITS ---
STUDY: DUAL ENERGY X-RAY ABSORPTIOMETRY / DXA REASON FOR EXAM: Female, 60 years old. [id number]. Patient is postmenopausal. Loss of height. TECHNIQUE: Bone Mineral Density (BMD) measurements of lumbar spine and bilateral hips were obtained. COMPARISON: Comparison is made with prior examination dated 12/07/2016. FINDINGS: Lumbar Spine (L1-L4): g/cm2 (0.640) / T-score (-3.7) / Z-score (-2.3) Findings are suggestive of osteoporosis with a high fracture risk. Left Femur Total: g/cm2 (0.723) / T-score (-1.8) / Z-score (-0.8) Left Femoral Neck: g/cm2 (0.607) / T-score (-2.2) / Z-score (-0.9) Right Femur Total: g/cm2 (0.714) / T-score (-1.9) / Z-score (-0.9) Right Femoral Neck: g/cm2 (0.577) / T-score (-2.5) / Z-score (-1.1) The T-Scores on the most recent prior examination were: Lumbar Spine (L1-L4): There has been worsening of bone density since the previous examination. Left Femur Total: which represents an improvement of 8.5%. Right Femur Total: which represents an improvement of 9.6%. BD/Dexa Bone Density Study IMPRESSION: The patient is considered osteoporotic as outlined below according to World [place] Organization (WHO) criteria with a high fracture risk. There has been improvement of bone density since the previous examination. Reference Information: The T-score is the number of standard deviations above or below the standard which is normal for young adults at their peak bone mineral density. The World Health Organization (WHO) interprets the T-scores as follows: Above -1 Normal bone density Between -1 and -2.5 Osteopenia Equal to / or below -2.5 Osteoporosis As a practical clinical guideline, osteopenia may be graded as follows: Mild -1 through -1.5 Moderate -1.6 through -2.0 Severe -2.1 through -2.4 The Z-score is the number of standard deviations above or below age-matched controls. A Z-score of less than -1.5 would be considered abnormal. References: 1. NIH Osteoporosis and Related Bone Diseases www osteo.org 2. International Society for Clinical Densitometry www iscd.org 3. National Osteoporosis Foundation www nof.org Electronically Signed: Harvey Mohan MD at 12:31 EDT , Service support ,
== END ==
PROVIDERS: PCP Internal Medicine; Referring Provider Obstetrics & Gynecology; Visit Provider Obstetrics & Gynecology
DX: Z78.0 Asymptomatic menopausal state (principal); Z12.31 Encounter for screening mammogram for malignant neoplasm of breast
CPT/HCPCS: 77063; 77067; 77080

== ENCOUNTER → 2021-08-12 10:08 | Outpatient (CLI) | payer BC, SELFPAY ==
[2021-08-12 12:52] LABS: Vitamin D,25 Hydroxy 65.6 ng/mL
[2021-08-12 12:58] LABS: ALB/GLOB Ratio 0.9 RATIO (0.9-2.4); AST(SGOT) 19 U/L (15-37); Alanine Aminotransfer ALT/SGPT 24 U/L (13-56); Albumin, Serum 3.6 g/dL (3.2-5.0); Alkaline Phosphatase 74 U/L (45-117); Anion Gap 6 (5-15); BUN 12 mg/dL (7-18); Calcium,Total 9.9 mg/dL (8.5-10.1); Chloride 106 mmol/L (98-107); Creatinine, Serum 0.67 mg/dL (0.55-1.02); EST Glomerular Filtration Rate 96 mL/min (>60); Est Glom Filt Rate - Afr Amer 116 mL/min (>60); Globulin 4.1 g/dL (2.2-4.2); Glucose 99 mg/dL (74-106); Magnesium 2.3 mg/dL (1.6-2.6); Potassium 4.5 mmol/L (3.5-5.1); Protein, Total 7.7 g/dL (6.4-8.2); Sodium Level 140 mmol/L (136-145)
== END ==
PROVIDERS: PCP Internal Medicine; Visit Provider Internal Medicine
DX: I48.0 Paroxysmal atrial fibrillation (principal); M81.0 Age-related osteoporosis without current pathological fracture
CPT/HCPCS: 36415; 80053; 82306; 83735

== ENCOUNTER 2021-09-16 12:11 | Outpatient (CLI) | payer BC, SELFPAY | END 2021-09-16 23:59 | disposition short-term general hospital (02) | LOC: LABSPEC 12:12 | PROVIDERS: PCP Internal Medicine; Referring Provider Nurse Practitioner Family; Visit Provider Nurse Practitioner Family | DX: J02.9 Acute pharyngitis, unspecified (principal) | CPT/HCPCS: 87070; 87077; 87186 ==

== ENCOUNTER → 2022-02-24 | Outpatient (CLI) | payer BC, SELFPAY ==
[2022-03-01 11:17] LABS: HPV APTIMA, High Risk Negative (Negative)
== END | disposition home or self-care (01) ==
LOC: LABSPEC 11:24
PROVIDERS: PCP Internal Medicine; Visit Provider Obstetrics & Gynecology
DX: Z12.4 Encounter for screening for malignant neoplasm of cervix (principal)
CPT/HCPCS: 87624; 88175; G0145

== ENCOUNTER → 2022-03-25 | Outpatient (CLI) | payer BC, SELFPAY ==
--- NOTE | 2022-03-25 08:44 | BI_ITS ---
MAMMOGRAPHY - BILATERAL SCREENING REASON FOR EXAM: Female, 61 years old. Routine annual screening examination. PERTINENT HISTORY: Aunt with breast cancer. Remote left stereotactic breast biopsy. TECHNIQUE: Digital bilateral breast ayaz (3D mammographic acquisition) in the CC and MLO projections. 2-D mediolateral oblique (MLO) and craniocaudad (CC) views of both breasts were obtained. CAD: Full Field Digital Mammography with Computer Added Detection was performed. COMPARISON: Comparison is made with prior study dated 03/19/2021 and 01/24/2020. FINDINGS: Breast Composition: The breasts are heterogeneously dense, which may obscure small masses. There are no dominant masses or suspicious calcifications. Stable small benign-appearing bilateral axillary nodes. A tissue clip marker is seen in the upper central portion of the left breast. No other significant abnormalities are identified. There has been no significant change since the prior study. BI/SCRN MAMM (CAD)W/AYAZ BILAT IMPRESSION: Stable bilateral screening mammogram. Yearly follow-up mammogram recommended. (A) ASSESSMENT CATEGORY: BIRADS Category 2: Benign. A letter regarding these results will be sent to the patient by the facility within 30 days. Approximately 10% of breast cancers are not detected by mammography. A normal mammogram should not delay biopsy of a clinically suspicious abnormality. [id number] Electronically Signed: Harvey Mohan MD at 9:40 EDT ,
== END | disposition home or self-care (01) ==
LOC: OPBI 08:43
PROVIDERS: PCP Internal Medicine; Visit Provider Obstetrics & Gynecology
DX: Z12.31 Encounter for screening mammogram for malignant neoplasm of breast (principal)
CPT/HCPCS: 77063; 77067

== ENCOUNTER → 2022-05-26 | Outpatient (CLI) | payer BC, SELFPAY ==
[2022-06-03 15:37] LABS: HPV APTIMA, High Risk Negative (Negative)
== END | disposition home or self-care (01) ==
LOC: LABSPEC 14:27
PROVIDERS: PCP Internal Medicine; Visit Provider Student in an Organized Health Care Education/Training Program
DX: Z12.4 Encounter for screening for malignant neoplasm of cervix (principal)
CPT/HCPCS: 87624; 88175; G0145

== ENCOUNTER → 2022-08-04 | Outpatient (CLI) | payer BC, SELFPAY ==
[2022-08-04 12:27] LABS: Absolute Lymphocyte Count 1.98 X10^3/uL (0.83-4.51); Absolute Neutrophil Count 3.8 X10^3/uL (2.0-7.7); Basophil# 0.05 X10^3/uL; Basophil% 0.8 % (0-1); Eosinophil# 0.17 X10^3/uL; Eosinophils% 2.6 % (0-5); Hematocrit 42.5 % (37-47); Hemoglobin 14.1 g/dL (12.0-15.0); Lymphocyte # 1.98 X10^3/ul (0.83-4.51); Lymphocyte % 30.5 % (19-41); Mean Corp Hgb Conc 33.2 g/dL (32-36); Mean Corpuscular Hgb 29.9 pg (27.0-32.0); Mean Corpuscular Volume 90.2 fL (81-99); Mean Platelet Vol. 9.4 fl (6.2-12.0); Monocyte% 7.7 % (0-10); NRBC Flagged by Analyzer 0 % (0-5); Neutrophil # 3.76 X10^3/uL (2.7-7.7); Neutrophil % 57.9 % (47-70); Platelet Count 226 K/mm3 (150-450); RBC Distribution Width CV 12.5 % (11.6-14.6); RBC Distribution Width SD 41.2 fl (35.1-43.9); Red Blood Count 4.71 M/mm3 (4.2-5.4); White Blood Count 6.5 K/mm3 (4.4-11.0)
[2022-08-04 13:02] LABS: ALB/GLOB Ratio 1.1 RATIO (0.9-2.4); AST(SGOT) 18 U/L (15-37); Alanine Aminotransfer ALT/SGPT 28 U/L (13-56); Albumin, Serum 3.5 g/dL (3.2-5.0); Alkaline Phosphatase 50 U/L (45-117); Anion Gap 4 (5-15); BUN 14 mg/dL (7-18); BUN/Creat Ratio 20.6 RATIO (10-20); Calcium,Total 8.6 mg/dL (8.5-10.1); Chloride 106 mmol/L (98-107); Creatinine, Serum 0.68 mg/dL (0.55-1.02); EST Glomerular Filtration Rate 93 mL/min (>60); Est Glom Filt Rate - Afr Amer 113 mL/min (>60); Globulin 3.3 g/dL (2.2-4.2); Glucose 88 mg/dL (74-106); Potassium 3.7 mmol/L (3.5-5.1); Protein, Total 6.8 g/dL (6.4-8.2); Sodium Level 140 mmol/L (136-145)
[2022-08-04 13:06] LABS: Vitamin D,25 Hydroxy 74.2 ng/mL
== END | disposition home or self-care (01) ==
LOC: BIMLAB 11:37
PROVIDERS: PCP Internal Medicine; Referring Provider Internal Medicine; Visit Provider Internal Medicine
DX: M81.0 Age-related osteoporosis without current pathological fracture (principal)
CPT/HCPCS: 36415; 80053; 82306; 85025

== ENCOUNTER → 2022-08-09 | Outpatient (CLI) | payer BC, SELFPAY ==
[2022-08-09 13:02] LABS: Vitamin B12 816 pg/mL (211-911)
[2022-08-09 13:07] LABS: T4 Free Direct 0.92 ng/dL (0.76-1.46); Thyroid Stim Hormone (TSH) 3.24 uIU/mL (0.358-3.74)
== END | disposition home or self-care (01) ==
LOC: BIMLAB 10:13
PROVIDERS: PCP Internal Medicine; Referring Provider Internal Medicine; Visit Provider Internal Medicine
DX: F32.A Depression, unspecified (principal)
CPT/HCPCS: 36415; 82607; 84439; 84443

== ENCOUNTER → 2022-08-10 | Outpatient (CLI) | payer BC, SELFPAY | END | disposition home or self-care (01) | LOC: LABSPEC 09:58 | PROVIDERS: PCP Internal Medicine; Visit Provider Dermatology | DX: L98.8 Other specified disorders of the skin and subcutaneous tissue (principal); J34.0 Abscess, furuncle and carbuncle of nose; B95.61 Methicillin susceptible Staphylococcus aureus infection as the cause of diseases classified elsewhere | CPT/HCPCS: 87070; 87077; 87186; 87205 ==

== ENCOUNTER 2022-09-06 10:32 | Observation (INO) | payer BC, SELFPAY ==
[2022-09-06] VITALS (22 sets, daily range): BP systolic 124–156; BP diastolic 73–89; PULSE 55–87; RESP 16–20; TEMP 36.2–36.8; O2SAT 94–99; BMI 22.1; BMI 23.3; BMI 21.2
--- NOTE | 2022-09-06 10:37 | ED.RN ---
DISCUSSED PT WITH DR HAMILTON. NO STROKE ALERT
--- NOTE | 2022-09-06 11:21 | RAD_ITS ---
HISTORY: Neuro deficit, acute, stroke suspected. TECHNIQUE: XR Chest 1 View. COMPARISON: None. FINDINGS: CARDIOMEDIASTINAL BORDERS: Cardiac silhouette within normal limits in size. Mediastinal contour unremarkable. LUNGS: Mild linear bibasilar opacities. PLEURA: No pleural effusion or pneumothorax seen. OSSEOUS STRUCTURES: Unremarkable. OTHER: Residual contrast in the left upper extremity veins. RAD/Chest 1 View IMPRESSION: Mild bibasilar atelectasis. Electronically Signed: Rhonda Redd MD at 12:10 EST ,
--- NOTE | 2022-09-06 11:21 | EKG12_ITS ---
Test Reason : NEURO S/SX Blood Pressure : / mmHG Vent. Rate : 051 BPM Atrial Rate : 051 BPM P-R Int : 192 ms QRS Dur : 082 ms QT Int : 438 ms P-R-T Axes : 050 046 048 degrees QTc Int : 403 ms Sinus bradycardia Otherwise normal ECG Confirmed by IRMA INGRAM, XOCHILT ([id number]), digital editor SONAL POPE ([id number]) on 09/07/2022 1:09:25 PM Referred By: Confirmed By:XOCHILT SOLIS MD
--- NOTE | 2022-09-06 11:24 | EDS_ITS ---
HPI History of Present Illness Chief Complaint: Neuro S/Sx Narrative Narrative: 62-year-old female presenting with double vision. She states that she sees objects on top of each other when she looks with both eyes. When she covers 1 eye her vision is normal. She states she noticed this at 615 when she woke up and got out of bed. She thought maybe she was dehydrated and drank a lot of water. She states at 515 or so when she woke up she did not have the symptoms. She states she has a headache but this started afterwards. She states this is from opening and closing 1 eye to see straight. She can walk without falling but she feels a little off balance because of her vision. She is been trying to use on eye to get around. No nausea or vomiting. No history of TIA or stroke. Patient anticoagulated on Xarelto with history of fibrillation. Patient denies any head trauma. [facility] Medical History Allergies Back problem Bone fracture Breast lump in female Chondrodermatitis nodularis helicis of left ear Chronic anticoagulation Elevated blood pressure reading in office without diagnosis of hypertension Family history of malignant neoplasm of colon in mother History of blood clots History of DVT (deep vein thrombosis) (~2011) Mild depressive disorder Non-healing skin lesion Osteoporosis Palpitations Paroxysmal atrial fibrillation Personal history of colonic polyps Routine health maintenance Skin cancer Home Medications multivitamin 1 tab PO DAILY 05/30/19 [History Last Taken Unknown] vitamin B complex (Super B-50 Complex capsule) 1 cap PO DAILY 06/01/19 [History Last Taken Unknown] vitamin E (dl, acetate) 180 mg (400 unit) capsule 400 unit PO DAILY 06/01/19 [History Last Taken Unknown] ascorbate calcium (vitamin C) 500 mg tablet 500 mg PO DAILY 03/13/20 [History Last Taken Unknown] calcium carbonate 500 mg calcium (1,250 mg) tablet 500 mg PO DAILY 08/12/20 [History Last Taken Unknown] diltiazem HCl 120 mg capsule,extended release 24 hr 120 mg PO DAILY #90 caps 12/03/21 [Rx Last Taken Unknown] cholecalciferol (vitamin D3) 25 mcg (1,000 unit) tablet 25 mcg PO BID 01/21/22 [History Last Taken Unknown] progesterone micronized 100 mg capsule 100 mg PO QHS 01/21/22 [History Last Taken Unknown] rivaroxaban 20 mg tablet 20 mg PO DAILY #90 tabs 03/22/22 [Rx Last Taken Unk nown] alendronate 70 mg tablet (Fosamax) 70 mg PO QWEEK #14 tabs 03/23/22 [Rx Last Taken Unknown] albuterol sulfate 90 mcg/actuation aerosol inhaler 1 - 2 puff inhalation Q6H PRN shortness of breath or wheezing #8.5 grams 04/15/22 [Rx Last Taken Unknown] Allergy/AdvReac Type Severity Reaction Status Date / Time adhesive Allergy Intermediate rash Verified 09/06/22 10:37 Sulfa (Sulfonamide Allergy Intermediate Rash Verified 09/06/22 10:37 Antibiotics) bacitracin AdvReac Intermediate wound Verified 09/06/22 10:37 [From Neosporin gets worse ([id number])] neomycin AdvReac Intermediate wound Verified 09/06/22 10:37 [From Neosporin gets worse ([id number])] polymyxin B AdvReac Intermediate wound Verified 09/06/22 10:37 [From Neosporin gets worse ([id number])] Family History Mother Atrial fibrillation Arthritis Colon cancer Hypertension Severe allergy Aunt Breast cancer Father Skin cancer Malignant hyperthermia due to anesthesia Sister Skin cancer MELANOMA Son Hypertension Son Hypertension Surgical History History of back surgery (~2011) History of ear surgery History of excision of lesion Social History Smoking Status: Never smoker alcohol intake: current alcohol intake frequency: 0-2 drinks per day substance use type: does not use caffeine: Yes Type: coffee Number of servings: 1 what type of physical activity do you participate in: yoga additional social history: DOES NOT USE ASPIRIN DOES USE IBUPROFEN NEEDED BUT NOT OFTEN EXAM Physical Exam Const Vital Signs: 09/06/22 10:33 09/06/22 11:34 09/06/22 11:40 Temperature 98 F Temperature Source Temporal Pulse Rate 64 59 L Respiratory Rate 16 18 Blood Pressure 156/89 H 150/81 H Blood Pressure Mean 111 104 Pulse Ox 99 99 Oxygen Delivery Method Room Air Room Air Room Air 09/06/22 11:42 09/06/22 12:21 09/06/22 12:51 Temperature Temperature Source Pulse Rate 63 62 Respiratory Rate 16 16 16 Blood Pressure 142/82 H 126/81 H Blood Pressure Mean 102 96 Pulse Ox 94 95 Oxygen Delivery Method Room Air Room Air 09/06/22 13:00 09/06/22 13:30 09/06/22 13:41 Temperature Temperature Source Pulse Rate 61 59 L 59 L Respiratory Rate 18 16 18 Blood Pressure 130/83 H 133/78 H 133/78 H Blood Pressure Mean 98 96 96 Pulse Ox 97 98 98 Oxygen Delivery Method Room Air Room Air Room Air Positive well nourished General Appearance ED: NAD HEENT Reports moist mucous membranes and dry mucous membranes Mouth ED: Yes dry mucous membranes Mouth: dry mucous membranes Eyes PERRL and EOMs intact bilaterally General Eye ED: Yes normal appearance of both eyes Visual Acuity: acuity normal Visual Field: No peripheral vision loss, No central vision loss, No left visual field cut and No right visual field cut Alignment: alignment normal Periorbital: periorbital findings normal Eyelid: eyelids normal Conjunctiva: conjunctiva normal Sclera: sclera normal Cornea: cornea normal Pupil: PERRL Neck no lymphadenopathy Resp normal respiratory effort and clear to auscultation bilaterally Cardio Rate: regular rate Rhythm: regular rhythm Extremity normal to inspection Neuro oriented x3 Sensorium / Orientation: alert Speech: speech normal Psych mental status grossly normal Skin no wounds MDM MDM MDM Narrative Medical decision making narrative: Patient presenting with vertical diplopia. Onset was about 615 this morning. No history of TIA or stroke. No head injuries. She is able to see out of each eye individually and appears normal. Neuro exam is otherwise unremarkable. CBC, BMP are unremarkable. Coagulation studies also unremarkable. High- sensitivity opponent is 4. EKG sinus bradycardia with a ventricular rate of 51 bpm without sign of ischemic change. CTA with and without contrast does not s how any acute findings. Given the patient's diplopia I think she will need to be admitted to the hospital for MRI. She was given a dose of aspirin prior to admission. Discussed with the hospitalist. Impression: 1. Diplopia 2. Headache Lab Data Attestation: I reviewed the patient's lab results. Labs: Laboratory Results - last 24 hr 01/02/23 01/02/23 01/02/23 11:30 11:30 11:30 WBC 5.7 RBC 4.62 Hgb 14.4 Hct 41.1 MCV 89.0 MCH 31.2 MCHC 35.0 RDW Std Deviation 40.4 RDW Coeff of Sarthak 12.5 Plt Count 217 MPV 9.0 Immature Gran % (Auto) 0.400 Neut % (Auto) 60.2 Lymph % (Auto) 28.8 [place] % (Auto) 7.8 Eos % (Auto) 1.9 Baso % (Auto) 0.9 Absolute Neuts (auto) 3.4 Absolute Lymphs (auto) 1.63 Nucleated RBC % 0 PT 21.4 H INR 1.9 APTT 34.5 Sodium 141 Potassium 3.8 Chloride 108 H Carbon Dioxide 29.0 Anion Gap 4 L BUN 13 Creatinine 0.70 Estim Creat Clear Calc 87.08 Est GFR (MDRD) Af Amer 109 Est GFR (MDRD) Non-Af 90 BUN/Creatinine Ratio 18.5 Glucose 102 Calcium 9.8 Troponin I High Sens 4 POC Glucose 09/06/22 11:39 WBC RBC Hgb Hct MCV MCH MCHC RDW Std Deviation RDW Coeff of Sarthak Plt Count MPV Immature Gran % (Auto) Neut % (Auto) Lymph % (Auto) [place] % (Auto) Eos % (Auto) Baso % (Auto) Absolute Neuts (auto) Absolute Lymphs (auto) Nucleated RBC % PT INR APTT Sodium Potassium Chloride Carbon Dioxide Anion Gap BUN Creatinine Estim Creat Clear Calc Est GFR (MDRD) Af Amer Est GFR (MDRD) Non-Af BUN/Creatinine Ratio Glucose Calcium Troponin I High Sens POC Glucose 94 Radiography Diagnostic Testing: Clinical Impression(s) from Imaging Studies Chest X-Ray 09/06/22 11:21 IMPRESSION: Mild bibasilar atelectasis. Electronically Signed: Rhonda Redd MD at 12:10 EST , Head/Neck CTA 09/06/22 11:30 IMPRESSION: No acute intracranial process identified. Mild chronic small vessel ischemic gliosis. Electronically Signed: Rhonda Redd MD at 12:25 EST , Discharge Plan Triage Chief Complaint: Neuro S/Sx ED Provider: Dilip Castillo Dx/Rx/DC Orders Prescriptions: No Action multivitamin Tablet 1 tab PO DAILY vitamin E (dl, acetate) 400 unit capsule 400 unit PO DAILY vitamin B complex [Super B-50 Complex] Capsule 1 cap PO DAILY ascorbate calcium (vitamin C) 500 mg tablet 500 mg PO DAILY progesterone micronized 100 mg capsule 100 mg PO QHS Rx Instructions: off 7 days; repeat cycle cholecalciferol (vitamin D3) 25 mcg (1,000 unit) tablet 25 mcg PO BID calcium carbonate 500 MG tablet 500 mg PO DAILY diltiazem HCl 120 mg capsule,extended release 24hr 120 mg PO DAILY Qty: 90 3RF rivaroxaban 20 mg tablet 20 mg PO DAILY Qty: 90 3RF alendronate [Fosamax] 70 mg tablet 70 mg PO QWEEK Qty: 14 3RF albuterol sulfate 90 mcg/actuation HFA aerosol inhaler 1 - 2 puff inhalation Q6H PRN (Reason: shortness of breath or wheezing) Qty: 8.5 0RF Primary Care Provider: Tristin Mcginnis Referrals: Tristin Mcginnis MD [Primary Care Provider] -
--- NOTE | 2022-09-06 11:27 | NURSING ---
NO OLD EKG
--- NOTE | 2022-09-06 11:30 | CT_ITS ---
HISTORY: vertical diplopia. TECHNIQUE: Routine carotid and enterprise of [place] CT angiogram protocol was performed after the intravenous administration of 100 mL Isovue-370. NASCET criteria using the distal ICAs for comparison were used for evaluation of stenoses. 3D reconstructions were reviewed. A radiation dose optimization technique was used for this scan .2434 images. COMPARISON: CT head same day. FINDINGS: AORTIC ARCH AND BRANCHES: Minimal atherosclerosis. RIGHT CCA: No occlusion, significant stenosis or dissection. Mild noncalcified plaque at the origin RIGHT ICA: No occlusion, significant stenosis or dissection. LEFT CCA: No occlusion, significant stenosis or dissection. Mild noncalcified plaque at the origin of the external carotid artery. LEFT ICA: No occlusion, significant stenosis or dissection. RIGHT VERTEBRAL ARTERY: No occlusion, significant stenosis or dissection. LEFT VERTEBRAL ARTERY: No occlusion, significant stenosis or dissection. ICAs: No significant stenosis at the intracranial/visualized segments. ACAs: No significant stenosis at the visualized segments. MCAs: No significant stenosis at the visualized segments. casing wringer operator: No significant stenosis at the visualized segments. BASILAR ARTERY: No significant stenosis. VERTEBRAL ARTERIES: No significant stenosis at the intradural/visualized segments. Hypoplastic intracranial left vertebral artery and dominant intracranial right vertebral artery. No evidence of intracranial aneurysm or vascular malformation. IMPRESSION: No evidence for significant stenosis or occlusion in the carotid or vertebral arteries of the neck. No evidence for large vessel occlusion or other focal vascular abnormality in the enterprise of [place] region. Electronically Signed: Rhonda Redd MD at 12:25 EST Reading Location ID and State: [facility] / [place] Tel , Service support , HISTORY: vertical diplopia. TECHNIQUE: Multiple axial images were obtained of the head without intravenous contrast. A radiation dose optimization technique was used for this scan. 2434 images. COMPARISON: None. FINDINGS: BRAIN PARENCHYMA: Mild chronic small vessel ischemic gliosis. No acute intra-axial hemorrhage. Basal ganglia calcifications incidentally noted. CSF SPACES: Cerebral ventricles, cortical sulci, and other extra-axial CSF spaces within normal limits in size for age. No midline shift or other significant mass effect. No acute extra-axial hemorrhage. OTHER: Intact calvarium. No significant air fluid levels in the paranasal sinuses or mastoid air cells. Unremarkable orbits. ASPECTS Score for Acute Strokes: 10 CT/CTA Head AND Neck W/ Contrast IMPRESSION: No acute intracranial process identified. Mild chronic small vessel ischemic gliosis. Electronically Signed: Rhonda Redd MD at 12:25 EST ,
[2022-09-06 11:42] LABS: Absolute Lymphocyte Count 1.63 X10^3/uL (0.83-4.51); Absolute Neutrophil Count 3.4 X10^3/uL (2.0-7.7); Basophil# 0.05 X10^3/uL; Basophil% 0.9 % (0-1); Eosinophil# 0.11 X10^3/uL; Eosinophils% 1.9 % (0-5); Hematocrit 41.1 % (37-47); Hemoglobin 14.4 g/dL (12.0-15.0); Lymphocyte # 1.63 X10^3/ul (0.83-4.51); Lymphocyte % 28.8 % (19-41); Mean Corpuscular Hgb 31.2 pg (27.0-32.0); Monocyte# 0.44 X10^3/uL; Monocyte% 7.8 % (0-10); NRBC Flagged by Analyzer 0 % (0-5); Neutrophil # 3.41 X10^3/uL (2.7-7.7); Neutrophil % 60.2 % (47-70); Platelet Count 217 K/mm3 (150-450); RBC Distribution Width CV 12.5 % (11.6-14.6); RBC Distribution Width SD 40.4 fl (35.1-43.9); Red Blood Count 4.62 M/mm3 (4.2-5.4); White Blood Count 5.7 K/mm3 (4.4-11.0)
[2022-09-06 11:53] LABS: International Normalized Ratio 1.9; Prothrombin Time (Protime)PT. 21.4 SECONDS (11.7-14.9)
[2022-09-06 11:54] LABS: Partial Thromboplast Time 34.5 Seconds (24.1-36.2)
[2022-09-06 11:58] LABS: Anion Gap 4 (5-15); BUN 13 mg/dL (7-18); BUN/Creat Ratio 18.5 RATIO (10-20); Calcium,Total 9.8 mg/dL (8.5-10.1); Chloride 108 mmol/L (98-107); EST Glomerular Filtration Rate 90 mL/min (>60); Est Glom Filt Rate - Afr Amer 109 mL/min (>60); Estimated Creatinine Clearance 87.08 ml/min; Glucose 102 mg/dL (74-106); Potassium 3.8 mmol/L (3.5-5.1); Sodium Level 141 mmol/L (136-145); Troponin-I HS 4 pg/mL (3.0-54.0)
[2022-09-06 12:00] LABS: Bedside Glucose 94 mg/dL (74-106)
--- NOTE | 2022-09-06 14:48 | NURSING ---
DR GARCIA FOR DR KELLY
--- NOTE | 2022-09-06 15:32 | NURSING ---
PCU OBS JOSE KIM
[2022-09-06] MEDS: Aspirin 81 MG TAB.CHEW 324 MG PO (15:37)
--- NOTE | 2022-09-06 15:49 | MRI_ITS ---
HISTORY: TIA/Stroke. TECHNIQUE: Multiplanar and multisequence MR images of the brain were obtained without contrast. 287 images. COMPARISON: CT prior day. FINDINGS: Motion artifact lowers the sensitivity of examination. BRAIN PARENCHYMA: No significant signal abnormality in the brain parenchyma. No abnormal focus of restricted diffusion. No acute intracranial hemorrhage identified. CSF SPACES: Cerebral ventricles, cortical sulci, and other extra-axial CSF spaces within normal limits in size for age. No significant midline shift or other mass effect.No extra-axial fluid collection. VASCULAR SYSTEM: Major intracranial flow voids are maintained. PARANASAL SINUSES AND MASTOID AIR CELLS: No significant air fluid levels. ORBITS: Symmetric contents. MRI/Brain without Contrast IMPRESSION: Motion artifact. No evidence for acute infarct. Electronically Signed: Rhonda Redd MD at 14:00 EST ,
--- NOTE | 2022-09-06 15:49 | ECHOD_ITS ---
Reason For Study: TIA Procedure This was a 2D Doppler, Color Flow transthoracic echocardiogram. The exam was of adequate technical quality. Exam performed portable in patient room. Left Ventricle Normal LV size. Left ventricular systolic function is normal. The estimated ejection fraction is 65 %. Diastolic function is indeterminate. No regional wall motion abnormalities noted. Right Ventricle Normal RV size. Normal systolic function. Atria Normal left atrium. Normal right atrium. No doppler evidence for ASD. Mitral Valve There is no mitral annular calcification. Normal mitral valve. Trivial mitral valve insufficiency. Tricuspid Valve Normal tricuspid valve. Trivial tricuspid valve insufficiency. Right ventricular systolic pressure estimated to be 28 mmHg. Aortic Valve Trisinus/trileaflet aortic valve. Normal aortic valve. Pulmonic Valve The pulmonic valve is not well visualized. Great Vessels Normal sized aortic root. Pericardium/Pleural No pericardial effusion. MMode/2D Measurements & Calculations LVIDd: 4.3 cm IVSd: 0.96 cm Ao root diam: 3.7 cm LVIDs: 2.7 cm LVPWd: 1.0 cm RVDd: 3.7 cm FS: 37.6 % LAV(MOD-sp4): 40.7 ml LVAd ap4: 26.1 cm2 SV(MOD-sp4): 51.8 ml LVLd ap4: 6.8 cm EDV(MOD-sp4): 79.6 ml EDV(sp4-el): 84.4 ml LVAs ap4: 13.2 cm2 LVLs ap4: 5.3 cm ESV(MOD-sp4): 27.9 ml ESV(sp4-el): 27.7 ml EF(MOD-sp4): 65.0 % EF(sp4-el): 67.1 % SV(sp4-el): 56.6 ml LA A4 area: 15.3 cm2 RA A4 area: 14.5 cm2 Time Measurements MV dec time: 0.20 sec Doppler Measurements & Calculations MV E max aaron: 95.1 cm/sec Lat Peak E' Aaron: 10.0 cm/sec Med Peak E' Aaron: 5.3 cm/sec MV A max aaron: 75.3 cm/sec E/E' lat: 9.5 E/E' med: 17.8 MV E/A: 1.3 MV V2 max: 93.6 cm/sec Ao V2 max: 122.4 cm/sec MV max P.5 mmHg MV dec slope: 478.2 cm/sec2 Ao max P.0 mmHg MV V2 mean: 57.1 cm/sec Ao V2 mean: 83.1 cm/sec MV mean P.5 mmHg Ao mean P.2 mmHg MV V2 VTI: 31.0 cm Ao V2 VTI: 30.0 cm AV (velocity ratio): 0.89 LV V1 max: 114.1 cm/sec MR max aaron: 505.0 cm/sec PA V2 max: 100.8 cm/sec LV V1 max P.2 mmHg MR max P.0 mmHg LV V1 mean P.5 mmHg LV V1 mean: 72.1 cm/sec LV V1 VTI: 26.7 cm TR max aaron: 247.8 cm/sec TR max P.6 mmHg ECHO/Echo Complete Interpretation Summary Left ventricular systolic function is normal. The estimated ejection fraction is 65 %. Trivial mitral valve insufficiency. Trivial tricuspid valve insufficiency. Right ventricular systolic pressure estimated to be 28 mmHg. Diastolic function is indeterminate. Comment: A previous transthoracic echocardiogram from 06-20-2019 was reported a s demonstrating: Bubble contrast study negative for [id number] interatrial shunt. Ordering Physician: Christin Jon Referring Physician: Tristin Mcginnis Performed By: Rama Delgado RCS
--- NOTE | 2022-09-06 15:50 | PCM.HP.STD ---
HPI - General General Date of Admission: 09/06/22 Date of Service: 09/06/22 Chief Complaint: Diplopia HPI Narrative EVI MOELLER, is a 62 F who presented to the emergency department [facility] on 09/06/2022 with a chief complaint of diplopia. She states it started this morning and it was present upon awakening. She is never had anything similar to this in the past. It has been persistent since then. She has no other associated symptoms including focal weakness, tingling, or numbness. She denies any other vision changes. She states when she looks up it seems like her vision is improved and when she covers 1 eye her diplopia is resolved. Vital signs on presentation demonstrated temperature of 98 degrees, heart rate 64, blood pressure 156/89, respiratory rate was 16, pulse ox was 99% on room air. CBC was unremarkable. Coags are abnormal with an INR of 1.9, PT of 21.4 and a PTT of 34.5 however patient is on Xarelto at baseline. Her chemistry panel was unremarkable. Her initial troponin was 4. EKG was unremarkable for any acute ST-T wave changes consistent with ischemia or arrhythmia. Chest x-ray only showed mild bibasilar atelectasis. CTA of the head and neck showed no acute intracranial process with mild chronic small vessel ischemic gliosis and no evidence of significant stenosis or occlusion in the carotid or vertebral arteries of the neck or tling[place] & [place] of [place] in the head. FORMERLY [facility], 1928–1983 Medical History Allergies Back problem Bone fracture Breast lump in female Chondrodermatitis nodularis helicis of left ear Chronic anticoagulation Elevated blood pressure reading in office without diagnosis of hypertension Family history of malignant neoplasm of colon in mother History of blood clots History of DVT (deep vein thrombosis) (~2011) Mild depressive disorder Non-healing skin lesion Osteoporosis Palpitations Paroxysmal atrial fibrillation Personal history of colonic polyps Routine health maintenance Skin cancer Home Medications multivitamin 1 tab PO DAILY supplement 05/30/19 [History Last Taken 09/06/22] vitamin B complex (Super B-50 Complex capsule) 1 cap PO DAILY supplement 06/01/19 [History Last Taken 09/06/22] vitamin E (dl, acetate) 180 mg (400 unit) capsule 180 mg PO DAILY supplement 06/01/19 [History Last Taken 09/06/22] ascorbate calcium (vitamin C) 500 mg tablet 500 mg PO DAILY supplement 03/13/20 [History Last Taken 09/05/22] calcium carbonate 500 mg calcium (1,250 mg) tablet 500 mg PO DAILY bone health 08/12/20 [History Last Taken 09/06/22] cholecalciferol (vitamin D3) 25 mcg (1,000 unit) tablet 25 mcg PO BID bone health 01/21/22 [History Last Taken 09/06/22] progesterone micronized 100 mg capsule 100 mg PO QHS hormone 01/21/22 [History Last Taken 09/05/22] albuterol sulfate 90 mcg/actuation aerosol inhaler 1 - 2 puff inhalation Q6H PRN shortness of breath or wheezing #8.5 grams 04/15/22 [Rx Last Taken Unknown] alendronate 70 mg tablet (Fosamax) 70 mg PO QWEEK bones 09/06/22 [History Last Taken 09/06/22] diltiazem HCl 120 mg capsule,extended release 24 hr 120 mg PO DAILY heart 09/06/22 [History Last Taken 09/06/22] rivaroxaban 20 mg tablet 20 mg PO DAILY blood thinner 09/06/22 [History Last Taken 09/06/22] Allergy/AdvReac Type Severity Reaction Status Date / Time adhesive Allergy Intermediate rash Verified 09/06/22 10:37 Sulfa (Sulfonamide Allergy Intermediate Rash Verified 09/06/22 10:37 Antibiotics) bacitracin AdvReac Intermediate wound Verified 09/06/22 10:37 [From Neosporin gets worse ([id number])] neomycin AdvReac Intermediate wound Verified 09/06/22 10:37 [From Neosporin gets worse ([id number])] polymyxin B AdvReac Intermediate wound Verified 09/06/22 10:37 [From Neosporin gets worse ([id number])] Family History Mother Atrial fibrillation Arthritis Colon cancer Hypertension Severe allergy Aunt Breast cancer Father Skin cancer Malignant hyperthermia due to anesthesia Sister Skin cancer MELANOMA Son Hypertension Son Hypertension Surgical History History of back surgery (~2011) History of ear surgery History of excision of lesion Social History Smoking Status: Never smoker alcohol intake: current alcohol intake frequency: 0-2 drinks per day substance use type: does not use caffeine: Yes Type: coffee Number of servings: 1 what type of physical activity do you participate in: yoga additional social history: DOES NOT USE ASPIRIN DOES USE IBUPROFEN NEEDED BUT NOT OFTEN ROS Constitutional Constitutional: Denies anorexia, change in weight, chills, fatigue, fever(s), malaise, night sweats, weakness or other Eyes Eyes: Reports double vision; Denies blurry vision, change in eye color, change in vision, discharge from eye(s), erythema, eye pain, loss of vision or other ENT HEENT: Denies abnormal hearing, dysphagia, ear pain, epistaxis, headache(s), hearing loss, nasal congestion, nasal discharge, post nasal drip, sinus pressure, sore throat or other Cardiovascular Cardiovascular: Denies chest pain, claudication, dyspnea on exertion, edema, lightheadedness, orthopnea, palpitations, paroxysmal nocturnal dyspnea, rapid heart rate, syncope or other Respiratory/Chest Respiratory/Chest: Denies cough, dyspnea, excessive phlegm production, hemoptysis, productive cough, shortness of breath at rest, shortness of breath with exertion, wheezing or other Gastrointestinal Gastrointestinal: Denies abdominal pain, coffee ground emesis, constipation, diarrhea, dyspepsia, hematemesis, hematochezia, loose stools, melena, nausea, vomiting or other Genitourinary Genitourinary: Denies burning urination, difficulty urinating, dysuria, hematuria, nocturia, urinary frequency, urinary hesitancy, urinary incontinence, urinary urgency or other Musculoskeletal Musculoskeletal: Denies arthralgias, back pain, joint pain, joint stiffness, joint swelling, myalgias, neck pain or other Neurologic Neurologic: Denies abnormal gait, abnormal speech, confusion, disequilibrium, dizziness, focal weakness, headache(s), numbness, paresthesias, seizure-like activity, seizures, syncope, tingling, tremor(s) or other Psychiatric Psychiatric: Denies anxiety, depression, homicidal ideation, suicidal ideation or other Endocrine Endocrinology: Denies change in body appearance, cold intolerance, excessive sweating, heat intolerance, polydipsia, polyuria or other Hematologic/Lymphatic Hematologic/Lymphatic: Denies anemia, easy bleeding, easy bruising, lymphadenopathy or other Allergic/Immunologic Allergic/Immunologic: Denies rhinitis, hives, eczemia, asthma or other Vital Signs Vital Signs Vital Signs: 09/06/22 10:33 09/06/22 11:34 09/06/22 11:40 Temperature 98 F Temperature Source Temporal Pulse Rate 64 59 L Respiratory Rate 16 18 Blood Pressure 156/89 H 150/81 H Blood Pressure Mean 111 104 Pulse Ox 99 99 Oxygen Delivery Method Room Air Room Air Room Air 09/06/22 11:42 09/06/22 12:21 09/06/22 12:51 Temperature Temperature Source Pulse Rate 63 62 Respiratory Rate 16 16 16 Blood Pressure 142/82 H 126/81 H Blood Pressure Mean 102 96 Pulse Ox 94 95 Oxygen Delivery Method Room Air Room Air 09/06/22 13:00 09/06/22 13:30 09/06/22 13:41 Temperature Temperature Source Pulse Rate 61 59 L 59 L Respiratory Rate 18 16 18 Blood Pressure 130/83 H 133/78 H 133/78 H Blood Pressure Mean 98 96 96 Pulse Ox 97 98 98 Oxygen Delivery Method Room Air Room Air Room Air Weight Weight: 71.7 kg Body Mass Index (BMI) 23.3 Physical Exam Const alert, oriented x3, no apparent distress, healthy appearing and well nourished Constitutional Narrative: Very pleasant, upper middle-aged white female sitting up in bed, appears comfortable nontoxic, at bedside General Appearance: cooperative HEENT normocephalic, head/scalp atraumatic, hearing grossly normal bilaterally, moist oral mucous membranes and oropharynx normal HEENT Narrative: Dentition is good, Mallampati is 2, no thrush Eyes PERRL, EOMs intact bilaterally and conjunctivae normal Eyes Narrative: No scleral icterus Neck no lymphadenopathy, supple, no JVD and no carotid bruits Neck Narrative: Trachea midline, no thyroid enlargement Resp normal respiratory effort, no retractions, no use of accessory muscles and clear to auscultation bilaterally Auscultation: Negative for crackles, rhonchi or wheezes Cardio regular rate, regular rhythm, S1 normal heart sound, S2 normal heart sound, no murmurs, no rub, no gallops and no clicks GI normal to inspection, nondistended, normoactive bowel sounds, soft to palpation and non-tender Extremity no clubbing, cyanosis or edema Extremity Narrative: 2+ pedal pulses, 2+ radial pulses, symmetrical Skin no rashes or lesions noted, no wounds, skin turgor normal, no jaundice, no petechiae and no mottling Neuro oriented x3, CN's II-XII intact bilaterally, moves all extremities and no focal motor deficits Neuro Narrative: Only abnormality on neuro exam is diplopia Speech: speech normal Psych affect normal Psych Narrative: Very pleasant Results Lab / Micro Data Attestation: I reviewed the patient's lab results. Result Diagrams: 09/06/22 11:30 09/06/22 11:30 Labs: Laboratory Results - last 24 hr 09/06/22 11:30: WBC 5.7, RBC 4.62, Hgb 14.4, Hct 41.1, MCV 89.0, MCH 31.2, MCHC 35.0, RDW Std Deviation 40.4, RDW Coeff of Sarthak 12.5, Plt Count 217, MPV 9.0, Immature Gran % (Auto) 0.400, Neut % (Auto) 60.2, Lymph % (Auto) 28.8, [place] % (Auto) 7.8, Eos % (Auto) 1.9, Baso % (Auto) 0.9, Absolute Neuts (auto) 3.4, Absolute Lymphs (auto) 1.63, Nucleated RBC % 0 09/06/22 11:30: PT 21.4 H, INR 1.9, APTT 34.5 09/06/22 11:30: Sodium 141, Potassium 3.8, Chloride 108 H, Carbon Dioxide 29.0, Anion Gap 4 L, BUN 13, Creatinine 0.70, Estim Creat Clear Calc 87.08, Est GFR (MDRD) Af Amer 109, Est GFR (MDRD) Non-Af 90, BUN/Creatinine Ratio 18.5, Glucose 102, Calcium 9.8, Troponin I High Sens 4 09/06/22 11:39: POC Glucose 94 Radiology Impression Chest X-Ray 09/06/22 11:21 IMPRESSION: Mild bibasilar atelectasis. Electronically Signed: Rhonda Redd MD at 12:10 EST , Head/Neck CTA 09/06/22 11:30 IMPRESSION: No acute intracranial process identified. Mild chronic small vessel ischemic gliosis. Electronically Signed: Rhonda Redd MD at 12:25 EST Reading Location ID and State: [facility] / MD Tel , Service support , Assessment & Plan Assessment/Plan (1) Diplopia: PLAN: Plan New onset diplopia -Need to rule out stroke -MRI -CTA of the head and neck was unremarkable -No other neurological deficits noted on exam -Check lipids -Aspirin 81 mg -Continue home Xarelto -Check echo--> patient has had previous echocardiograms however she has not had one that has a bubble study History of DVT -Continue Xarelto Paroxysmal atrial fibrillation -Continue toe -Continue home diltiazem Vitamin D deficiency -Restart cholecalciferol discharge -Continue home calcium carbonate Osteoporosis -Restart alendronate at discharge DVT prophylaxis -Home Xarelto CODE STATUS -Full code as verified on admission Charges/Coding Visit Charges Inpatient E&M: 33767 Init Hosp L2
[2022-09-07] VITALS (10 sets, daily range): BP systolic 112–142; BP diastolic 80–96; PULSE 56–72; RESP 16–18; TEMP 36.6–36.9; O2SAT 97–99; BMI 21.2
[2022-09-07 06:07] LABS: Absolute Lymphocyte Count 2.09 X10^3/uL (0.83-4.51); Absolute Neutrophil Count 2.1 X10^3/uL (2.0-7.7); Basophil# 0.03 X10^3/uL; Basophil% 0.6 % (0-1); Eosinophil# 0.24 X10^3/uL; Eosinophils% 4.9 % (0-5); Hematocrit 41.5 % (37-47); Hemoglobin 13.9 g/dL (12.0-15.0); Lymphocyte # 2.09 X10^3/ul (0.83-4.51); Lymphocyte % 42.4 % (19-41); Mean Corp Hgb Conc 33.5 g/dL (32-36); Mean Corpuscular Volume 89.4 fL (81-99); Mean Platelet Vol. 9.1 fl (6.2-12.0); Monocyte# 0.42 X10^3/uL; Monocyte% 8.5 % (0-10); NRBC Flagged by Analyzer 0 % (0-5); Neutrophil # 2.14 X10^3/uL (2.7-7.7); Neutrophil % 43.4 % (47-70); Platelet Count 218 K/mm3 (150-450); RBC Distribution Width CV 12.5 % (11.6-14.6); RBC Distribution Width SD 40.6 fl (35.1-43.9); Red Blood Count 4.64 M/mm3 (4.2-5.4); White Blood Count 4.9 K/mm3 (4.4-11.0)
[2022-09-07 07:00] LABS: Anion Gap 4 (5-15); BUN 12 mg/dL (7-18); BUN/Creat Ratio 22.6 RATIO (10-20); Calcium,Total 8.6 mg/dL (8.5-10.1); Chloride 110 mmol/L (98-107); Cholesterol 179 mg/dL (200); Creatinine, Serum 0.53 mg/dL (0.55-1.02); EST Glomerular Filtration Rate 124 mL/min (>60); Est Glom Filt Rate - Afr Amer 150 mL/min (>60); Estimated Creatinine Clearance 116.64 ml/min; Glucose 95 mg/dL (74-106); High Density Lipoprotein 69 mg/dL; Magnesium 2.2 mg/dL (1.6-2.6); Phosphorus 3.3 mg/dL (2.5-4.9); Potassium 3.8 mmol/L (3.5-5.1); Sodium Level 139 mmol/L (136-145); Thyroid Stim Hormone (TSH) 4.57 uIU/mL (0.358-3.74); Triglycerides 88 mg/dL; Very Low Density Lipoprotein 18 mg/dL (5-40)
[2022-09-07 07:31] LABS: T4 Free Direct 0.98 ng/dL (0.76-1.46)
[2022-09-07] MEDS: dilTIAZem CD 120 MG Capsule PO (08:52)
[2022-09-07] MEDS: Rivaroxaban 20 MG Tablet PO (08:52)
[2022-09-07] MEDS: Aspirin 81 MG TAB.CHEW PO (08:53)
[2022-09-07] MEDS: LORazepam 1 MG Tablet 2 MG PO (11:17)
--- NOTE | 2022-09-07 11:43 | PCM.PN.HOSP ---
Subjective Subjective Follow-up for diplopia. Objective Data Objective Data Vital Signs: Vital Signs Temp Pulse Resp BP Pulse Ox O2 Del Method 97.9 F 68 16 142/81 H 99 Room Air 09/07/22 08:45 09/07/22 09:23 09/07/22 08:45 09/07/22 08:45 09/07/22 08:45 09/07/22 08:55 Oxygen Delivery Method Room Air Weight: 148 lb Body Mass Index (BMI) 21.2 Lab / Micro Data Result Diagrams: 09/07/22 05:42 09/07/22 05:42 Labs: Laboratory Results - last 24 hr 09/06/22 11:30: PT 21.4 H, INR 1.9, APTT 34.5 09/06/22 11:30: Sodium 141, Potassium 3.8, Chloride 108 H, Carbon Dioxide 29.0, Anion Gap 4 L, BUN 13, Creatinine 0.70, Estim Creat Clear Calc 87.08, Est GFR (MDRD) Af Amer 109, Est GFR (MDRD) Non-Af 90, BUN/Creatinine Ratio 18.5, Glucose 102, Calcium 9.8, Troponin I High Sens 4 09/06/22 11:39: POC Glucose 94 09/07/22 05:42: WBC 4.9, RBC 4.64, Hgb 13.9, Hct 41.5, MCV 89.4, MCH 30.0, MCHC 33.5, RDW Std Deviation 40.6, RDW Coeff of Sarthak 12.5, Plt Count 218, MPV 9.1, Immature Gran % (Auto) 0.200, Neut % (Auto) 43.4 L, Lymph % (Auto) 42.4 H, [place] % (Auto) 8.5, Eos % (Auto) 4.9, Baso % (Auto) 0.6, Absolute Neuts (auto) 2.1, Absolute Lymphs (auto) 2.09, Nucleated RBC % 0 09/07/22 05:42: Sodium 139, Potassium 3.8, Chloride 110 H, Carbon Dioxide 25.0, Anion Gap 4 L, BUN 12, Creatinine 0.53 L, Estim Creat Clear Calc 116.64, Est GFR (MDRD) Af Amer 150, Est GFR (MDRD) Non-Af 124, BUN/Creatinine Ratio 22.6 H, Glucose 95, Calcium 8.6, Phosphorus 3.3, Magnesium 2.2, Triglycerides 88, Cholesterol 179, LDL Cholesterol 92, VLDL Cholesterol 18, HDL Cholesterol 69, TSH 4.57 H 09/07/22 05:42: Free T4 0.98 Radiography Diagnostic Testing: Radiology Impression Chest X-Ray 09/06/22 11:21 IMPRESSION: Mild bibasilar atelectasis. Electronically Signed: Rhonda Redd MD at 12:10 EST , Head/Neck CTA 09/06/22 11:30 IMPRESSION: No acute intracranial process identified. Mild chronic small vessel ischemic gliosis. Electronically Signed: Rhonda Redd MD at 12:25 EST , Physical Exam Narrative Patient admitted with diplopia. She does not have any other neurological symptoms including weakness, numbness tingling paresthesia/sensory loss, dysphagia, dysphonia or dysarthria/language deficit. No prior history of stroke. As per the she was not sleeping for last for 5 days. Physical exam General: Alert, Oriented x3, Cooperative HEENT: Atraumatic, PERRLA, EOMI, Normocephalic. no diplopia observed during different extraocular muscles movement Oral: No Gingival or Mucosal Lesions/ Ulcerations Neck: Supple, No JVD, Negative Carotid Bruits Lungs: Air entry equal in bilateral lung bases. No crepitation/rhonchi Cardiovascular: Regular rate, Regular Rhythm, Normal S1, Normal S2, soft systolic murmur LLSB Abdomen: Bowel Sounds Present, Soft, Non Tender, Non-Distended : No renal angle tenderness. No suprapubic tenderness. Extremities: No edema, Capillary Refill Less than 3 Seconds Skin: No rashes, No breakdown Musculoskeletal: No Tenderness to Palpation of Joints or Extremities, muscle strength 5/5 at major joints. ROM full. Neurological: Cranial nerves II-XII grossly intact, DTR 2+/4 and Symmetrical, Neuro grossly intact Psych/Mental Status: Normal Affect, Appropriate. Assessment & Plan Assessment/Plan (1) Diplopia: PLAN: Plan 62-year-old female admitted with chief complaint of diplopia. Her diplopia is on looking down. 1. New onset diplopia, exact etiology unclear: Patient is admitted on telemetry. 2D echo in July 2019 shows EF 65%, bubble study negative for [id number] interatrial shunt. Mild eccentric MR. Today, echo is completed. MRI still pending. Serum electrolytes in normal range including magnesium and phosphorus. High-sensitivity troponin normal. TC, 179 LDL 92. B12 816 in August 2022. If MRI brain is negative, patient can be discharged home. Patient further has Depramine that might be a local ophthalmologic [facility] and therefore advised to consult sales training manager. This was discussed with patient's . History of DVT -Continue Xarelto Paroxysmal atrial fibrillation: Patient on Xarelto. Currently in sinus rhythm. Twelve-lead EKG shows sinus rhythm 51 bpm. -Continue home diltiazem chronic Vitamin D deficiency -Restart cholecalciferol discharge -Continue home calcium carbonate Osteoporosis -Restart alendronate at discharge DVT prophylaxis -Home Xarelto CODE STATUS -Full code as verified on admission Total time of the visit including total time spent in counseling or coordination of care, (more than 50% of the total time, spent in obtaining medical information from nurses and other ancillary care providers,explaining to the patient about labs, imaging, diagnosis and management of active complex medical conditions), explaining different causes of diplopia, review of labs and imaging is 35 minutes. Clinical Impression(s) from Imaging Studies Chest X-Ray 09/06/22 11:21 IMPRESSION: Mild bibasilar atelectasis. Head/Neck CTA 09/06/22 11:30 IMPRESSION: No acute intracranial process identified. Mild chronic small vessel ischemic gliosis. Charges/Coding Visit Charges Inpatient E&M: 94764 Subs Hosp L2
--- NOTE | 2022-09-07 15:17 | DCINST_ITS ---
Discharge Instructions Diet Discharge Diet: Low fat / Low cholesterol and 2000 mg Sodium Diet Dressing / Incision Call your doctor if you observe: Fever of 101 or Higher, Coldness, Increased Pain, Numbness or Tingling, Change in Color, Inability to urinate, Inability to have a bowel movement, Using more than 1 pad per hour, Shortness of breath, Dizziness, Fainting spells, Swelling in the ankles, Chest pain, Prolonged hiccupping, Increased palpitations (irregular heartbeat), Calf discomfort and Uncontrolled pain Follow Up Care Test Results: Test results from this visit will be discussed in further detail at your follow- up appointment, if applicable. Discharge Plan Admission Admit Date/Time: 09/06/22 15:41 Primary Reason for Your Visit: Diplopia, resolved. No acute stroke. Attending Provider: Antonio Solis Primary Care Provider: Tristin Mcginnis Consulting Providers: Christin Jon Instructions Additional Instructions / Restrictions: Advised to follow-up [facility] if patient gets diplopia in future. Discharge Orders/Prescriptions Prescriptions: Continued multivitamin Tablet 1 tab PO DAILY vitamin E (dl, acetate) 400 unit capsule 180 mg PO DAILY vitamin B complex [Super B-50 Complex] Capsule 1 cap PO DAILY ascorbate calcium (vitamin C) 500 mg tablet 500 mg PO DAILY progesterone micronized 100 mg capsule 100 mg PO QHS Rx Instructions: off 7 days; repeat cycle cholecalciferol (vitamin D3) 25 mcg (1,000 unit) tablet 25 mcg PO BID calcium carbonate 500 MG tablet 500 mg PO DAILY alendronate [Fosamax] 70 mg tablet 70 mg PO QWEEK diltiazem HCl 120 mg capsule,extended release 24hr 120 mg PO DAILY rivaroxaban 20 mg tablet 20 mg PO DAILY albuterol sulfate 90 mcg/actuation HFA aerosol inhaler 1 - 2 puff inhalation Q6H PRN (Reason: shortness of breath or wheezing) Qty: 8.5 0RF Referrals / Follow Up: Tristin Mcginnis MD [Primary Care Provider] - Within 2 Weeks Disposition Disposition (needs filled in before D/C Order can be placed): Home, Self Care
--- NOTE | 2022-09-07 15:30 | DS.PCM_ITS ---
Providers Date of Admission: 09/06/22 Date of Discharge: 09/07/22 Primary Care Physician: Dr. Tristin Mcginnis MD Reason For Visit: DIPLOPLIA Diagnosis Discharge Diagnosis (1) Diplopia: Status: Acute Code(s): H53.2 - Diplopia Plan 62-year-old female admitted with chief complaint of diplopia. Her diplopia is on looking down. 1. New onset diplopia, exact etiology unclear: Patient is admitted on tel emetry. 2D echo in July 2019 shows EF 65%, bubble study negative for tknuc-cj-iqub interatrial shunt. Mild eccentric MR. Today, echo is completed. MRI still pending. Serum electrolytes in normal range including magnesium and phosphorus. High-sensitivity troponin normal. TC, 179 LDL 92. B12 816 in August 2022. If MRI brain is negative, patient can be discharged home. Patient further has Depramine that might be a local ophthal[employer] and therefore advised to consult patrol police sergeant. This was discussed with patient's . History of DVT -Continue Xarelto Paroxysmal atrial fibrillation: Patient on Xarelto. Currently in sinus rhythm. Twelve-lead EKG shows sinus rhythm 51 bpm. -Continue home diltiazem chronic Vitamin D deficiency -Restart cholecalciferol discharge -Continue home calcium carbonate Osteoporosis -Restart alendronate at discharge DVT prophylaxis -Home Xarelto CODE STATUS -Full code as verified on admission Total time of the visit including total time spent in counseling or coordination of care, (more than 50% of the total time, spent in obtaining medical information from nurses and other ancillary care providers,explaining to the patient about labs, imaging, diagnosis and management of active complex medical conditions), explaining different causes of diplopia, review of labs and imaging is 35 minutes. Clinical Impression(s) from Imaging Studies Chest X-Ray 09/06/22 11:21 IMPRESSION: Mild bibasilar atelectasis. Head/Neck CTA 09/06/22 11:30 IMPRESSION: No acute intracranial process identified. Mild chronic small vessel ischemic gliosis. Medications at Discharge Home Medications multivitamin 1 tab PO DAILY supplement 05/30/19 vitamin B complex (Super B-50 Complex capsule) 1 cap PO DAILY supplement 06/01/19 vitamin E (dl, acetate) 180 mg (400 unit) capsule 180 mg PO DAILY supplement 06/01/19 ascorbate calcium (vitamin C) 500 mg tablet 500 mg PO DAILY supplement 03/13/20 calcium carbonate 500 mg calcium (1,250 mg) tablet 500 mg PO DAILY bone health 08/12/20 cholecalciferol (vitamin D3) 25 mcg (1,000 unit) tablet 25 mcg PO BID bone health 01/21/22 progesterone micronized 100 mg capsule 100 mg PO QHS hormone 01/21/22 albuterol sulfate 90 mcg/actuation aerosol inhaler 1 - 2 puff inhalation Q6H PRN shortness of breath or wheezing #8.5 grams 04/15/22 alendronate 70 mg tablet (Fosamax) 70 mg PO QWEEK bones 09/06/22 diltiazem HCl 120 mg capsule,extended release 24 hr 120 mg PO DAILY heart 09/06/22 rivaroxaban 20 mg tablet 20 mg PO DAILY blood thinner 09/06/22 Hospital Course Summary of Care Provided Hospital Course: 62-year-old female admitted with chief complaint of diplopia.? Her diplopia is on looking down. 1.? New onset diplopia, exact etiology unclear: Patient is admitted on te lemetry.? 2D echo in July 2019 shows EF 65%, bubble study negative for mavya-si-ixwq interatrial shunt.? Mild eccentric MR.? Today, echo is completed.? MRI still pending.? Serum electrolytes in normal range including magnesium and phosphorus.? High-sensitivity troponin normal.? TC, 179 LDL 92.? B12 816 in August 2022. MRI brain does not show acute stroke. Patient already has history of paroxysmal A. fib and she is on Xarelto therefore 30-day event monitor would not change course of management. Bubble contrast read negative for [id number]-vp-[id number] interatrial shunt. 2D echo shows no ASD. This was discussed with patient's in detail. If patient further gets diplopia, I advised to see [facility], referred by PCP. History of DVT -Continue Xarelto Paroxysmal atrial fibrillation: Patient on Xarelto.? Currently in sinus rhythm.? Twelve-lead EKG shows sinus rhythm 51 bpm. -Continue home diltiazem chronic Vitamin D deficiency -Restart cholecalciferol discharge -Continue home calcium carbonate Osteoporosis -Restart alendronate at discharge DVT prophylaxis -Home Xarelto CODE STATUS -Full code as verified on admission Discharge medication reconciliation done. Discharge follow-up instructions completed. Discharge process discussed with the patient and all questions were answered to patient's satisfaction. Total time spent, exact 35 minutes on discharge meds reconciliation, examination, coordination of care with nurses and ancillary staff, review of imaging and blood test and discussion with the patient on follow-up instructions. Physical Exam Narrative Patient was seen and examined in the morning. Please see progress note of the same date Weight / BMI Weight Weight: 148 lb Body Mass Index (BMI) 21.2 ABG / Lab / Microbiology Data Result Diagrams: 09/07/22 05:42 09/07/22 05:42 Laboratory: Laboratory Results - last 24 hr 09/07/22 05:42: WBC 4.9, RBC 4.64, Hgb 13.9, Hct 41.5, MCV 89.4, MCH 30.0, MCHC 33.5, RDW Std Deviation 40.6, RDW Coeff of Sarthak 12.5, Plt Count 218, MPV 9.1, Immature Gran % (Auto) 0.200, Neut % (Auto) 43.4 L, Lymph % (Auto) 42.4 H, [place] % (Auto) 8.5, Eos % (Auto) 4.9, Baso % (Auto) 0.6, Absolute Neuts (auto) 2.1, Absolute Lymphs (auto) 2.09, Nucleated RBC % 0 09/07/22 05:42: Sodium 139, Potassium 3.8, Chloride 110 H, Carbon Dioxide 25.0, Anion Gap 4 L, BUN 12, Creatinine 0.53 L, Estim Creat Clear Calc 116.64, Est GFR (MDRD) Af Amer 150, Est GFR (MDRD) Non-Af 124, BUN/Creatinine Ratio 22.6 H, Glucose 95, Calcium 8.6, Phosphorus 3.3, Magnesium 2.2, Triglycerides 88, Cholesterol 179, LDL Cholesterol 92, VLDL Cholesterol 18, HDL Cholesterol 69, TSH 4.57 H 09/07/22 05:42: Free T4 0.98 Radiography Diagnostic Testing: Radiology Impression Brain MRI 09/06/22 15:49 IMPRESSION: Motion artifact. No evidence for acute infarct. Electronically Signed: Rhonda Redd MD at 14:00 EST Reading Location ID and State: [facility] / [place] Tel , Service support , Echocardiogram 09/06/22 15:49 Interpretation Summary Left ventricular systolic function is normal. The estimated ejection fraction is 65 %. Trivial mitral valve insufficiency. Trivial tricuspid valve insufficiency. Right ventricular systolic pressure estimated to be 28 mmHg. Diastolic function is indeterminate. Comment: A previous transthoracic echocardiogram from 06-20-2019 was reported as demonstrating: Bubble contrast study negative for metki-if-mvij interatrial shunt. Ordering Physician: Christin Jon Referring Physician: Tristin Mcginnis Performed By: Rama Delgado RCS D/C Instructions Discharge Diet: Low fat / Low cholesterol and 2000 mg Sodium Diet Call your doctor if you observe: Fever of 101 or Higher, Coldness, Increased Pain, Numbness or Tingling, Change in Color, Inability to urinate, Inability to have a bowel movement, Using more than 1 pad per hour, Shortness of breath, Dizziness, Fainting spells, Swelling in the ankles, Chest pain, Prolonged hiccupping, Increased palpitations (irregular heartbeat), Calf discomfort and Uncontrolled pain Meaningful Use Info Meaningful Use Diagnoses (Choose all that apply): None applicable Discharge Plan Admission Admit Date/Time: 09/06/22 15:41 Primary Reason for Your Visit: Diplopia, resolved. No acute stroke. Attending Provider: Antonio Solis Primary Care Provider: Tristin Mcginnis Consulting Providers: Christin Jon Instructions Additional Instructions / Restrictions: Advised to follow-up [facility] if patient gets diplopia in future. Discharge Orders/Prescriptions Prescriptions: Continued multivitamin Tablet 1 tab PO DAILY vitamin E (dl, acetate) 400 unit capsule 180 mg PO DAILY vitamin B complex [Super B-50 Complex] Capsule 1 cap PO DAILY ascorbate calcium (vitamin C) 500 mg tablet 500 mg PO DAILY progesterone micronized 100 mg capsule 100 mg PO QHS Rx Instructions: off 7 days; repeat cycle cholecalciferol (vitamin D3) 25 mcg (1,000 unit) tablet 25 mcg PO BID calcium carbonate 500 MG tablet 500 mg PO DAILY alendronate [Fosamax] 70 mg tablet 70 mg PO QWEEK diltiazem HCl 120 mg capsule,extended release 24hr 120 mg PO DAILY rivaroxaban 20 mg tablet 20 mg PO DAILY albuterol sulfate 90 mcg/actuation HFA aerosol inhaler 1 - 2 puff inhalation Q6H PRN (Reason: shortness of breath or wheezing) Qty: 8.5 0RF Referrals / Follow Up: Tristin Mcginnis MD [Primary Care Provider] - Within 2 Weeks Disposition Disposition (needs filled in before D/C Order can be placed): Home, Self Care Charges/Coding Addendum Addendum: Please cancel the billing charge of the progress note of the same date Visit Charges Inpatient E&M: 46975 Disch Hosp >30min
== END 2022-09-07 17:14 | disposition home or self-care (01) ==
LOC: ED 15:48 → MS2 15:51
PROVIDERS: Admitting Provider Internal Medicine; Emergency Provider Student in an Organized Health Care Education/Training Program; PCP Internal Medicine; Visit Provider Internal Medicine
DX: H53.2 Diplopia (principal); I48.0 Paroxysmal atrial fibrillation; M81.0 Age-related osteoporosis without current pathological fracture; R00.1 Bradycardia, unspecified; Z79.01 Long term (current) use of anticoagulants; E55.9 Vitamin D deficiency, unspecified; Z86.718 Personal history of other venous thrombosis and embolism; Z79.899 Other long term (current) drug therapy
CPT/HCPCS: 36415; 70496; 70498; 70551; 71045; 80048; 80061; 82962; 83735; 84100; 84439; 84443; 84484; 85025; 85610; 85730; 93005; 93306; 94668; 99221; 99252; 99285; Q9967; A4216; G0378; G0463

== ENCOUNTER 2023-03-22 10:30 | Outpatient (RCR) | payer BC, SELFPAY ==
--- NOTE | 2023-02-04 09:20 | HP.PTEVAL_ITS ---
Patient's Visit Information EVI MOELLER is a 62 year old F referred to Physical Therapy by Dr. Ramone Liu DO with a diagnosis of L femur fx with ORIF. Date of Evaluation: 01/24/23 Physical Therapist: George Harmon DPT - Visit Plan Frequency: 2x /Week Duration: 4 Weeks Plan: Start with standing AROM exercises. Add in glute/hip flexor strengthening. Progressing gait tolerance away from AD as tolerated. - Subjective Pt. is here today for her initial evaluation with diagnosis of L femur fracture with ORIF. Pt. hurt her leg while playing pickleball. She is back in town now. Overall she is doing well. Pt. arrives with FWW with good use. Pt. is still sore and stiff, but is overall tolerating things well. She has not done much exercise at this point in time. Pt. is sleeping okay. No N/T noted in either LE. Pt. is having some trouble lifting her leg, but this is due to soreness. NO sharp pain noted. She is walking better, but still having some issues with increasing her WBing. Pt. does have some difficulty with reciprocal movement. Pt. is hopeful to get back to all recreational activities without limitations. - Pain L hip Pain Intensity (Out of 10): 1 Pain Intensity Range: 0, 4 - Objective POSTURE: Pt. has decent posture in stance, slight increased wt. shift to R side. Pt. does not feel comfortable with SLS on L side at this point in time. PALPATION: Pt. had tenderness throughout IT band and quad. Pt. has well healing incision. Negative homans sign. No calf pain noted. NEURO: Pt. has normal sensation in BLEs. Pt. has normal DTR of BLEs as well. Pt. is able to rise on heels and toes with balance aide. ROM: L HIP: PASSIVE: flexion 90deg, abd 30deg, ext 0deg, ER 30deg, IR DNT. Tight HS noted bilaterally. Normal knee ROM. ACTIVE: L hip: flexion 70deg increase NW, adb 45deg increase NW,. MMT: RLE: 5/5 throughout. LLE: ankle 5/5 throughout; knee 5/5 throughout; hip: flexion 3+/5, abd 3/5, ext 4+/5. Core strength- fair. GAIT: Pt. ambulates with FWW with decent tolerance. She does have decreased R step length and gaurded pattern noted. Slightly antalgic. STAIRS: Step to pattern noted with use of BHR. - Balance/Special Test Scores Lower Extremity Functional Score: 22 - Goals Goal 1:: LTG: Pt. to be I with HEP. Goal Time Frame: 4-6 Weeks Goal 2:: STG: Pt. to sleep throughout the night without increase in symptoms. Goal Time Frame: 2-4 Weeks Goal 3:: LTG: Pt. to be able to ambulate without AD with normal gait pattern without increase in symptoms. Goal Time Frame: 4-6 Weeks Goal 4:: STG: Pt. to move in bed without increase in symptoms. Goal Time Frame: 2-4 Weeks Goal 5:: LTG: Pt. to have 5/5 strength throughout LLE without increase in symptoms. Goal Time Frame: 4-6 Weeks - Rehabilitation Potential Physical Therapy Diagnosis: Pt. has signs and symptoms consistent with L femur fx with ORIF. Pt. has some hypomobility, weakness, difficulty with walking and increased pain. Pt would benefit from PT to address the above limitations progressing back to all recreational activities without limitations. Rehabilitation Potential: Excellent - Anticipated Interventions Patient/Client Instruction: Educate patient on: Condition, Plan of Care, Risk Factors, Benefits of Fitness Program For the Purpose of:: To improve decision making, To facilitate caregiver know ledge, To improve self management, To prevent re-injury, To improve ability to perform tasks related to life management, To improve tolerance to ADL's Therapeutic Exercise to Include: Strength training, Power training, Endurance training, Balance training, Postural training, Flexibilty training, Gait and locomotor training, Passive ROM, Active ROM For the Purpose of:: To decrease pain, To increase ROM, To improve nutrient delivery to tissue, To increase oxygenation perfusion, To improve muscle performance and motor function, To improve ability to perform ADL's, To increase tolerance to activity/condition/position, To improve gait and locomotor functions, To improve health of tissue, To decrease soft tissue restriction Thank you for the opportunity to evaluate your patient. For Medicare and Medicare HMO plans, please review the plan of care and approve it. It will need to be FAXED BACK to us at [phone] for Medicare purposes. For Medicare only, by signing this I certify the plan of care. Please let me know if there are questions or concerns regarding this plan of care. Physician Signature: Date:
--- NOTE | 2023-03-22 11:33 | HP.PTDCSUM ---
Discharge Summary D/C summary: It has been my pleasure to treat EVI MOELLER referred by Dr. Ramone Liu DO, with the diagnosis of L femur fx with ORIF for a total of 2 visit(s). Discharge Date: 03/22/23 Please see the following information for a summary of their discharge status. Subjective Subjective: Pt. reports overall doing well. She arrives today without AD. Pt. reports overall having minimal pain. She is most concerned about having increased hip IR positioning and wanted to look her her gait pattern. Pain L hip: Pain Intensity (Out of 10): 0 Overall Improvement % Improvement: 90 Objective Objective/Function: Overall Evi is doing great. No ROM limitations noted. Pt. has good strength throughout B hips, except 4+/5 strength in L glute medius. GAIT: pt. has fairly normal pattern without AD. POSTURE: pt. has slight bilateral hip IR and with slight B knee valgus. Does not worsen in SLS. TU.1sec without AD. Goals Goal 1:: LTG: Pt. to be I with HEP. Goal Progress: Goal Met Goal 2:: STG: Pt. to sleep throughout the night without increase in symptoms. Goal Progress: Goal Met Goal 3:: LTG: Pt. to be able to ambulate without AD with normal gait pattern without increase in symptoms. Goal Progress: Goal Met Goal 4:: STG: Pt. to move in bed without increase in symptoms. Goal Progress: Goal Met Goal 5:: LTG: Pt. to have 5/5 strength throughout LLE without increase in symptoms. Goal Progress: Progressing Plan Plan: Pt. to complete given HEP today I at this point in time. DC to HEP today. D/C Information Discharge Comments: Pt. will be DC to HEP for further glute medius strengthening this date. Pt. has progressed very well and has been instructed to continue with glute med strengthening and progressing walking program. Pt. consents. d/c sentence: If there are questions or concerns regarding this patient's physical therapy, please feel free to call me at [phone]. Thank you for the referral of this patient. Sincerely, George Henderson Sipos, DPT Balance/Gait/Functional tests Balance/Special Test Scores Lower Extremity Functional Score: 60
== END 2023-03-22 19:00 | disposition home or self-care (01) ==
LOC: PT 10:30
PROVIDERS: PCP Internal Medicine; Referring Provider Orthopaedic Surgery; Visit Provider Orthopaedic Surgery
DX: Z87.81 Personal history of (healed) traumatic fracture (principal)
CPT/HCPCS: 97110; 97161; 97164

== ENCOUNTER → 2023-04-14 | Outpatient (CLI) | payer BC, SELFPAY ==
--- NOTE | 2023-04-14 09:17 | BI_ITS ---
MAMMOGRAPHY - BILATERAL SCREENING REASON FOR EXAM: Female, 62 years old. Routine annual screening examination. PERTINENT HISTORY: Aunt with breast cancer. Remote left stereotactic breast biopsy. TECHNIQUE: Digital bilateral breast ayaz (3D mammographic acquisition) in the CC and MLO projections. 2-D mediolateral oblique (MLO) and craniocaudad (CC) views of both breasts were obtained. CAD: Full Field Digital Mammography with Computer Added Detection was performed. COMPARISON: Comparison is made with prior study dated March 25, 2022 and March 19, 2021. FINDINGS: Breast Composition: The breasts are heterogeneously dense, which may obscure small masses. There are no dominant masses or suspicious calcifications. Stable small benign-appearing bilateral axillary lymph nodes. A tissue clip marker is seen in the anterior upper central portion of the left breast. No other significant abnormalities are identified. There has been no significant change since the prior study. BI/SCRN MAMM (CAD)W/AYAZ BILAT IMPRESSION: Stable bilateral screening mammogram. Yearly follow-up mammogram recommended. (A) ASSESSMENT CATEGORY: BIRADS Category 2: Benign. A letter regarding these results will be sent to the patient by the facility within 30 days. Approximately 10% of breast cancers are not detected by mammography. A normal mammogram should not delay biopsy of a clinically suspicious abnormality. [id number] Electronically Signed: Harvey Mohan MD at 10:52 EDT ,
== END | disposition home or self-care (01) ==
LOC: OPBI 09:15
PROVIDERS: PCP Internal Medicine; Referring Provider Obstetrics & Gynecology; Visit Provider Obstetrics & Gynecology
DX: Z12.31 Encounter for screening mammogram for malignant neoplasm of breast (principal)
CPT/HCPCS: 77063; 77067

== ENCOUNTER → 2023-07-22 | Outpatient (CLI) | payer BC, SELFPAY ==
[2023-07-22 12:40] LABS: Absolute Lymphocyte Count 2.04 X10^3/uL (0.83-4.51); Absolute Neutrophil Count 3.4 X10^3/uL (2.0-7.7); Basophil# 0.04 X10^3/uL; Basophil% 0.7 % (0-1); Eosinophil# 0.11 X10^3/uL; Eosinophils% 1.8 % (0-5); Hematocrit 45.4 % (37-47); Lymphocyte # 2.04 X10^3/ul (0.83-4.51); Lymphocyte % 33.7 % (19-41); Mean Corpuscular Hgb 29.6 pg (27.0-32.0); Mean Corpuscular Volume 89.7 fL (81-99); Mean Platelet Vol. 9.6 fl (6.2-12.0); Monocyte# 0.45 X10^3/uL; Monocyte% 7.4 % (0-10); NRBC Flagged by Analyzer 0 % (0-5); Neutrophil # 3.41 X10^3/uL (2.7-7.7); Neutrophil % 56.2 % (47-70); Platelet Count 207 K/mm3 (150-450); RBC Distribution Width CV 12.8 % (11.6-14.6); Red Blood Count 5.06 M/mm3 (4.2-5.4); White Blood Count 6.1 K/mm3 (4.4-11.0)
[2023-07-22 13:24] LABS: ALB/GLOB Ratio 1.1 RATIO (0.9-2.4); AST(SGOT) 20 U/L (15-37); Alanine Aminotransfer ALT/SGPT 25 U/L (13-56); Albumin, Serum 3.8 g/dL (3.2-5.0); Alkaline Phosphatase 69 U/L (45-117); Anion Gap 6 (5-15); BUN 14 mg/dL (7-18); BUN/Creat Ratio 18.8 RATIO (10-20); Calcium,Total 9.1 mg/dL (8.5-10.1); Chloride 108 mmol/L (98-107); Cholesterol 194 mg/dL (200); Creatinine, Serum 0.74 mg/dL (0.55-1.02); EST Glomerular Filtration Rate 84 mL/min (>60); Est Glom Filt Rate - Afr Amer 101 mL/min (>60); Globulin 3.6 g/dL (2.2-4.2); Glucose 90 mg/dL (74-106); High Density Lipoprotein 73 mg/dL; Potassium 4.1 mmol/L (3.5-5.1); Protein, Total 7.4 g/dL (6.4-8.2); Sodium Level 141 mmol/L (136-145); Triglycerides 94 mg/dL; Very Low Density Lipoprotein 19 mg/dL (5-40)
== END | disposition home or self-care (01) ==
PROVIDERS: PCP Internal Medicine; Referring Provider Internal Medicine; Visit Provider Internal Medicine
DX: Z00.00 Encounter for general adult medical examination without abnormal findings (principal)
CPT/HCPCS: 36415; 80053; 80061; 85025

== ENCOUNTER → 2023-08-19 | Outpatient (CLI) | payer BC, SELFPAY ==
--- NOTE | 2023-08-19 14:40 | RAD_ITS ---
EXAM: XR CHEST, 2 VIEWS CLINICAL INDICATION: Cough, Chest Congestion TECHNIQUE: Frontal and lateral views of the chest. COMPARISON: 09/06/2022 FINDINGS: LUNGS AND PLEURAL SPACES: Hyperinflation without focal airspace disease perhaps secondary to COPD. No pneumothorax. No effusion. HEART: No significant abnormality. Cardiac silhouette not enlarged. MEDIASTINUM: Central airways and mediastinal contour are unremarkable. BONES/JOINTS: Lower thoracic compression fracture without definite correlate on the prior AP radiograph of the chest. There is approximately 50% vertebral body height loss anteriorly of what appears to be T12. Degenerative changes in the spine. SOFT TISSUES: No significant abnormality. RAD/Chest PA and Lateral IMPRESSION: 1. Lower thoracic compression fracture without definite correlate on the prior AP radiograph of the chest. There is approximately 50% vertebral body height loss anteriorly of what appears to be T12. 2. Hyperinflation without focal airspace disease perhaps secondary to COPD. Electronically Signed: Hector Mittal DO at 22:01 EST ,
[2023-08-19 14:55] LABS: Absolute Lymphocyte Count 2.45 X10^3/uL (0.83-4.51); Absolute Neutrophil Count 5.8 X10^3/uL (2.0-7.7); Basophil# 0.06 X10^3/uL; Basophil% 0.7 % (0-1); Eosinophil# 0.17 X10^3/uL; Eosinophils% 1.9 % (0-5); Hematocrit 44.8 % (37-47); Hemoglobin 14.8 g/dL (12.0-15.0); Lymphocyte # 2.45 X10^3/ul (0.83-4.51); Lymphocyte % 26.8 % (19-41); Mean Corpuscular Hgb 29.2 pg (27.0-32.0); Mean Corpuscular Volume 88.5 fL (81-99); Mean Platelet Vol. 8.9 fl (6.2-12.0); Monocyte# 0.66 X10^3/uL; Monocyte% 7.2 % (0-10); NRBC Flagged by Analyzer 0 % (0-5); Neutrophil # 5.75 X10^3/uL (2.7-7.7); Neutrophil % 62.7 % (47-70); Platelet Count 264 K/mm3 (150-450); RBC Distribution Width CV 13.6 % (11.6-14.6); Red Blood Count 5.06 M/mm3 (4.2-5.4); White Blood Count 9.2 K/mm3 (4.4-11.0)
[2023-08-19 15:27] LABS: AST(SGOT) 17 U/L (15-37); Alanine Aminotransfer ALT/SGPT 22 U/L (13-56); Albumin, Serum 3.6 g/dL (3.2-5.0); Alkaline Phosphatase 64 U/L (45-117); Anion Gap 4 (5-15); BUN 12 mg/dL (7-18); BUN/Creat Ratio 17.4 RATIO (10-20); Calcium,Total 9.7 mg/dL (8.5-10.1); Chloride 106 mmol/L (98-107); Creatinine, Serum 0.69 mg/dL (0.55-1.02); EST Glomerular Filtration Rate 92 mL/min (>60); Est Glom Filt Rate - Afr Amer 111 mL/min (>60); Globulin 3.6 g/dL (2.2-4.2); Glucose 101 mg/dL (74-106); Protein, Total 7.2 g/dL (6.4-8.2); Sodium Level 139 mmol/L (136-145)
== END | disposition home or self-care (01) ==
PROVIDERS: PCP Internal Medicine; Referring Provider Internal Medicine; Visit Provider Internal Medicine
DX: R05.9 Cough, unspecified (principal); R09.89 Other specified symptoms and signs involving the circulatory and respiratory systems
CPT/HCPCS: 36415; 71046; 80053; 85025

== ENCOUNTER → 2024-03-01 | Outpatient (CLI) | payer BC, SELFPAY | END | disposition home or self-care (01) | LOC: PSN 11:10 | PROVIDERS: PCP Internal Medicine; Referring Provider Nurse Practitioner; Visit Provider Nurse Practitioner | DX: R09.89 Other specified symptoms and signs involving the circulatory and respiratory systems (principal); R05.9 Cough, unspecified | CPT/HCPCS: 94060; 94726; 94729 ==

== ENCOUNTER → 2024-04-24 | Outpatient (CLI) | payer BC, SELFPAY ==
--- NOTE | 2024-04-24 08:27 | BI_ITS ---
MAMMOGRAPHY - BILATERAL SCREENING REASON FOR EXAM: Female, 63 years old. Routine annual screening examination. PERTINENT HISTORY: Aunt with breast cancer. TECHNIQUE: Digital bilateral breast ayaz (3D mammographic acquisition) in the CC and MLO projections. 2-D mediolateral oblique (MLO) and craniocaudad (CC) views of both breasts were obtained. CAD: Full Field Digital Mammography with Computer Added Detection was performed. COMPARISON: Comparison is made with prior study April 14, 2023 and March 25, 2022. FINDINGS: Breast Composition: The breasts are heterogeneously dense, which may obscure small masses. There are no dominant masses or suspicious calcifications. Stable small benign appearing bilateral axillary lymph nodes. A tissue clip marker is seen in the upper central portion of the left breast. No other significant abnormalities are identified. There has been no significant change since the prior study. BI/SCRN MAMM (CAD)W/AYAZ BILAT IMPRESSION: Stable bilateral screening mammogram. Yearly follow-up mammogram recommended. (A) ASSESSMENT CATEGORY: BIRADS Category 2: Benign. A letter regarding these results will be sent to the patient by the facility within 30 days. Approximately 10% of breast cancers are not detected by mammography. A normal mammogram should not delay biopsy of a clinically suspicious abnormality. [id number] Electronically Signed: Harvey Mohan MD at 10:12 EDT ,
== END | disposition home or self-care (01) ==
PROVIDERS: PCP Internal Medicine; Referring Provider Obstetrics & Gynecology; Visit Provider Obstetrics & Gynecology
DX: Z12.31 Encounter for screening mammogram for malignant neoplasm of breast (principal)
CPT/HCPCS: 77063; 77067

== ENCOUNTER → 2024-07-27 | Outpatient (CLI) | payer BC, SELFPAY ==
[2024-07-27 10:51] LABS: Vitamin D,25 Hydroxy 82.3 ng/mL
[2024-07-27 11:11] LABS: AST(SGOT) 15 U/L (15-37); Alanine Aminotransfer ALT/SGPT 21 U/L (13-56); Albumin, Serum 3.8 g/dL (3.2-5.0); Alkaline Phosphatase 53 U/L (45-117); Anion Gap 6 (5-15); BUN 15 mg/dL (7-18); BUN/Creat Ratio 20.4 RATIO (10-20); Calcium,Total 9.6 mg/dL (8.5-10.1); Chloride 106 mmol/L (98-107); Creatinine, Serum 0.74 mg/dL (0.55-1.02); EST Glomerular Filtration Rate 85 mL/min (>60); Est Glom Filt Rate - Afr Amer 102 mL/min (>60); Globulin 3.7 g/dL (2.2-4.2); Glucose 96 mg/dL (74-106); Potassium 3.6 mmol/L (3.5-5.1); Protein, Total 7.5 g/dL (6.4-8.2); Sodium Level 139 mmol/L (136-145)
[2024-07-28 04:08] LABS: Thyroid Peroxidase AB 15 IU/mL (0-34)
== END | disposition home or self-care (01) ==
LOC: MTLAB 08:26
PROVIDERS: PCP Internal Medicine; Referring Provider Internal Medicine Endocrinology, Diabetes & Metabolism; Visit Provider Internal Medicine Endocrinology, Diabetes & Metabolism
DX: M81.0 Age-related osteoporosis without current pathological fracture (principal); R94.6 Abnormal results of thyroid function studies
CPT/HCPCS: 36415; 80053; 82306; 84443; 86376

== ENCOUNTER 2025-07-30 08:05 | Outpatient (CLI) | payer MEDICARE, OTHER, SELFPAY ==
[2025-07-30 09:57] LABS: Hematocrit 42.2 % (37-47); Hemoglobin 14.3 g/dL (12.0-15.0); Immature Granulocytes Count 0.010 X10^3/uL (0.0-0.0); Mean Corp Hgb Conc 33.9 g/dL (32-36); Mean Corpuscular Volume 87.9 fL (81-99); Mean Platelet Vol. 9.1 fl (6.2-12.0); NRBC Flagged by Analyzer 0 % (0-5); Platelet Count 197 K/mm3 (150-450); RBC Distribution Width CV 12.4 % (11.6-14.6); RBC Distribution Width SD 40.2 fl (35.1-43.9); Red Blood Count 4.80 M/mm3 (4.2-5.4); White Blood Count 4.8 K/mm3 (4.4-11.0)
[2025-07-30 10:38] LABS: AST(SGOT) 22 U/L (<=31); Alanine Aminotransfer ALT/SGPT 15 U/L (<=34); Albumin, Serum 4.0 g/dL (3.4-4.8); Alkaline Phosphatase 47 U/L (35-104); Anion Gap 10 (5-15); BUN 12 mg/dL (4-19); BUN/Creat Ratio 16.4 RATIO (10-20); Calcium,Total 9.2 mg/dL (7.6-11.0); Carbon Dioxide 24.9 mmol/L (21.0-32.0); Chloride 106 mmol/L (98-108); Cholesterol 186 mg/dL (<=200); Globulin 2.7 g/dL (2.2-4.2); Glucose 101 mg/dL (70-99); Low Density Lipoprotein Calc. 105 mg/dL; Potassium 3.7 mmol/L (3.3-5.1); Triglycerides 72 mg/dL; Very Low Density Lipoprotein 14 mg/dL (5-40); Vitamin B12 1014 pg/mL (180-914); Vitamin D,25 Hydroxy 58.3 ng/mL (30-100); cholesterol:hdl ratio screen 2.76
== END 2025-07-30 23:59 | disposition home or self-care (01) ==
PROVIDERS: PCP Internal Medicine; Referring Provider Physician Assistant; Visit Provider Physician Assistant
DX: Z00.00 Encounter for general adult medical examination without abnormal findings (principal); R53.83 Other fatigue; E55.9 Vitamin D deficiency, unspecified
CPT/HCPCS: 36415; 80053; 80061; 82306; 82607; 84443; 85025